=== PATIENT | female | born 1955 | race Caucasian/White ===

== ENCOUNTER 2019-09-25 07:25 | Outpatient (CLI) | payer OTHER, SELFPAY ==
[2019-09-25 08:47] LABS: Free T3 3.18 pg/mL (2.18-3.98); Free T4 Free Thyroxine 2.06 ng/dL (0.76-1.46); Thyroid Stimulating Hormone 0.01 uIU/mL (0.36-3.74)
[2019-09-28 01:30] LABS: Thyroglobulin 0.1 ng/mL (2.8-40.9); Thyroglobulin Antibodies <1 IU/mL (<=1)
== END 2019-09-25 07:26 | disposition home or self-care (01) ==
PROVIDERS: PCP Nurse Practitioner Family
DX: C73 Malignant neoplasm of thyroid gland (principal)
CPT/HCPCS: 36415; 82310; 84432; 84439; 84443; 84481; 86800

== ENCOUNTER 2019-10-18 07:02 | Outpatient (CLI) | payer OTHER, SELFPAY ==
--- NOTE | ~2019-10-18 | US_ITS ---
US thyroid 10/18/2019 11:00 Indication: History of malignant neoplasm of the thyroid Procedure: High-resolution ultrasound of the thyroid bed Comparison: No prior studies for comparison. Findings: The gland is surgically absent. No abnormal masses or fluid collections are identified in t he thyroid bed. No lymphadenopathy identified. Visualized vascular structures are unremarkable. Impression: 1: Unremarkable ultrasound of the thyroid bed. No evidence for residual/recurrent malignancy. Reviewed, dictated and finalized at location A. Impression: 1: Unremarkable ultrasound of the thyroid bed. No evidence for residual/recurre nt malignancy.
[2019-10-18 08:46] LABS: Alanine Aminotransferase 20 U/L (14-59); Alkaline Phosphatase 88 U/L (46-116); Anion Gap 12.8 mmol/L (7-16); Aspartate Amino Transferase 15 U/L (15-37); Bilirubin,Total 0.4 mg/dL (0.00-1.00); Blood Urea Nitrogen 12 mg/dL (7-18); Calcium 9.3 mg/dL (8.5-10.1); Carbon Dioxide 30 mmol/L (21-32); Chloride 107 mmol/L (98-108); Cholesterol 194 mg/dL (0-200); Estimated Glomerular Filt Rate > 60; Free T3 3.68 pg/mL (2.18-3.98); Free T4 Free Thyroxine 1.93 ng/dL (0.76-1.46); Glucose 92 mg/dL (70-99); HDL Direct 77 mg/dL (40-60); LDL Cholesterol Calculated 105 mg/dL (<130); Osmolality Calculated 301 mOsm/kg (285-295); Potassium 3.8 mmol/L (3.5-5.1); Sodium 146 mmol/L (136-145); Triglycerides 60 mg/dL (0-150)
[2019-10-18 09:08] LABS: Thyroid Stimulating Hormone 0.01 uIU/mL (0.36-3.74)
[2019-10-21 04:50] LABS: Thyroglobulin 0.1 ng/mL (2.8-40.9); Thyroglobulin Antibodies <1 IU/mL (<=1)
== END 2019-10-18 07:03 | disposition home or self-care (01) ==
PROVIDERS: PCP Nurse Practitioner Family; Visit Provider Internal Medicine Endocrinology, Diabetes & Metabolism
DX: E89.0 Postprocedural hypothyroidism (principal); Z85.850 Personal history of malignant neoplasm of thyroid; Z13.220 Encounter for screening for lipoid disorders
CPT/HCPCS: 36415; 76536; 80053; 80061; 84432; 84439; 84443; 84481; 86800

== ENCOUNTER 2020-01-15 11:33 | Outpatient (CLI) | payer OTHER, SELFPAY ==
[2020-01-15 19:46] LABS: SARS-CoV-2 RNA PCR Negative
== END 2020-01-15 11:34 | disposition home or self-care (01) ==
PROVIDERS: PCP Nurse Practitioner Family; Visit Provider Nurse Practitioner Family
DX: Z20.828 Contact with and (suspected) exposure to other viral communicable diseases (principal)
CPT/HCPCS: 87635; C9803; U0003

== ENCOUNTER 2020-01-16 13:07 | Outpatient (CLI) | payer OTHER, SELFPAY ==
[2020-01-17 18:52] LABS: SARS-CoV-2 RNA PCR Negative
== END 2020-01-16 13:08 | disposition home or self-care (01) ==
LOC: CHSLAB 13:10
PROVIDERS: PCP Nurse Practitioner Family; Visit Provider Nurse Practitioner Family
DX: Z20.828 Contact with and (suspected) exposure to other viral communicable diseases (principal)
CPT/HCPCS: 87635; C9803; U0003

== ENCOUNTER 2020-02-06 07:01 | Outpatient (CLI) | payer OTHER, SELFPAY ==
[2020-02-06 08:23] LABS: Free T3 3.63 pg/mL (2.18-3.98); Free T4 Free Thyroxine 1.94 ng/dL (0.76-1.46)
[2020-02-06 08:24] LABS: Thyroid Stimulating Hormone < 0.01 uIU/mL (0.36-3.74)
[2020-02-09 03:48] LABS: Thyroglobulin 0.2 ng/mL (2.8-40.9); Thyroglobulin Antibodies <1 IU/mL (<=1)
== END 2020-02-06 07:02 | disposition home or self-care (01) ==
PROVIDERS: PCP Nurse Practitioner Family
DX: C73 Malignant neoplasm of thyroid gland (principal)
CPT/HCPCS: 36415; 84432; 84439; 84443; 84481; 86800

== ENCOUNTER 2020-04-25 12:55 | Outpatient (CLI) | payer OTHER, SELFPAY ==
--- NOTE | ~2020-04-25 | MM_ITS ---
EXAMINATION: MM screening [facility] BI w liam HISTORY: Screening mammogram TECHNIQUE: Craniocaudal and mediolateral oblique 3-D tomosynthesis images were obtained and synthetic 2-D images were generated. CAD analysis was submitted and interpreted. COMPARISON: 04/25/2019, 04/29/2019, 04/02/1918, 03/24/2016 BREAST PARENCHYMAL COMPOSITION: There are scattered areas of fibroglandular density. FINDINGS: There is no evidence of suspicious mass, calcification, or architectural distortion to sugg est malignancy in either breast. There has been no suspicious interval change. IMPRESSION: 1. No mammographic evidence of malignancy. 2. Recommend routine screening mammography in one year. BI-RADS Category 1: Negative Reviewed, dictated and finalized at location A. DEVELOPER
--- NOTE | ~2020-04-25 | DEXA_ITS ---
Bone Density Report Name: Piedad Clinton Age: 64 Sex: Female Ethnicity: White Date of : 1955 Indication: postmenopausal; screening for osteoporosis; parental hip fracture; height loss; cancer; hysterectomy; Referring Provider: Kirby, Kari Pena Study: Bone densitometry was performed. Exam Date: April 25, 2020 Accession number: [id number] Bone Density: Region BMD T-score Z-score Classification AP Spine(L1-L4) 0.827 -2.0 -0.3 Osteopenia Femoral Neck (Left) 0.618 -2.1 -0.6 Osteopenia Total Hip (Left) 0.761 -1.5 -0.3 Osteopenia Femoral Neck (Right) 0.657 -1.7 -0.3 Osteopenia Total Hip (Right) 0.776 -1.4 -0.2 Osteopenia Femoral Neck Mean 0.638 -1.9 -0.5 Osteopenia Total Hip Mean 0.769 -1.4 -0.3 Osteopenia World Health Organization criteria for BMD impression classify patients as: Normal (T-score at or above -1.0), Osteopenia (T-score between -1.0 and -2.5), or Osteoporosis (T-score at or below -2.5). 10-year Fracture Risk(1): Major Osteoporotic Fracture 19% Hip Fracture 1.6% Reported Risk Factors: [place] (), Neck BMD=0.618, BMI=23.4, parental fracture (1) FRAX(R) Version 3.08. Fracture probability calculated for an untreated patient. Fracture probability may be lower if the patient has received treatment. Clinical Information Provided by Patient: Parent has had a hip fracture Has used the following medications: Calcium Has the following medical conditions: Cancer, Hysterectomy Patient maximum height was 68 Menopause Age: 49 No regular weight bearing exercise Drinks caffeinated beverages Onset of menses at age 17 Number of children 2 Impression: The patient has low bone mass, based on the Left Femoral Neck T-score. The patient has risk factors, including: parental hip fracture. Discussion: BONE DENSITY IS LOW AT ONE OR MORE SKELETAL SITES. This patient's lowest T-score is low at one or more skeletal sites. It meets the World Health Organization's (WHO) criteria for ?low bone mass? (T-score between -1.0 and -2.5). The patient's 10-year risk of fracture as calculated by FRAX is less than the threshold where pharmacological therapy is recommended by the National Osteoporosis Foundation (NOF). However, all treatment decisions require clinical judgment and consideration of individual patient factors, including patient preferences, comorbidities, previous drug use, risk factors not captured in the FRAX model (e.g., frailty, falls, vitamin D deficiency, increased bone turnover, interval significant decline in bone density) and possible under or overestimation of fracture risk by FRAX. The patient should follow a healthful lifestyle (good nutrition with adequate calcium and vitamin D, and appropriate weight-bearing exercise). Follow-Up: Consider repeating t
== END 2020-04-25 12:56 | disposition home or self-care (01) ==
LOC: CHSIMG 12:56
PROVIDERS: PCP Nurse Practitioner Family; Visit Provider Internal Medicine Endocrinology, Diabetes & Metabolism
DX: N95.9 Unspecified menopausal and perimenopausal disorder (principal); Z12.31 Encounter for screening mammogram for malignant neoplasm of breast
CPT/HCPCS: 77063; 77067; 77080

== ENCOUNTER 2020-04-30 07:07 | Outpatient (CLI) | payer OTHER, SELFPAY ==
[2020-04-30 09:18] LABS: Alanine Aminotransferase 23 U/L (14-59); Alkaline Phosphatase 99 U/L (46-116); Anion Gap 5 mmol/L (8-16); Aspartate Amino Transferase 10 U/L (15-37); Bilirubin,Total 0.5 mg/dL (0.00-1.00); Blood Urea Nitrogen 15 mg/dL (7-18); Calcium 9.2 mg/dL (8.5-10.1); Carbon Dioxide 30 mmol/L (21-32); Chloride 106 mmol/L (98-108); Estimated Glomerular Filt Rate > 60; Free T3 3.05 pg/mL (2.18-3.98); Free T4 Free Thyroxine 1.68 ng/dL (0.76-1.46); Glucose 83 mg/dL (70-99); Osmolality Calculated 291 mOsm/kg (285-295); Sodium 141 mmol/L (136-145); Total Protein 7.2 g/dL (6.4-8.2)
[2020-04-30 09:30] LABS: Thyroid Stimulating Hormone < 0.01 uIU/mL (0.36-3.74)
[2020-05-03 06:13] LABS: Thyroglobulin 0.2 ng/mL (2.8-40.9); Thyroglobulin Antibodies <1 IU/mL (<=1)
== END 2020-04-30 07:08 | disposition home or self-care (01) ==
LOC: CHSLAB 07:09
PROVIDERS: PCP Nurse Practitioner Family; Visit Provider Internal Medicine Endocrinology, Diabetes & Metabolism
DX: E89.0 Postprocedural hypothyroidism (principal)
CPT/HCPCS: 36415; 80053; 84432; 84439; 84443; 84481; 86800

== ENCOUNTER 2020-07-05 07:09 | Outpatient (CLI) | payer OTHER, SELFPAY ==
[2020-07-05 08:46] LABS: Alanine Aminotransferase 18 U/L (14-59); Alkaline Phosphatase 94 U/L (46-116); Anion Gap 7 mmol/L (8-16); Aspartate Amino Transferase < 10 U/L (15-37); Bilirubin,Total 0.4 mg/dL (0.00-1.00); Blood Urea Nitrogen 14 mg/dL (7-18); Calcium 9.1 mg/dL (8.5-10.1); Carbon Dioxide 29 mmol/L (21-32); Chloride 104 mmol/L (98-108); Estimated Glomerular Filt Rate > 60; Free T3 2.54 pg/mL (2.18-3.98); Glucose 84 mg/dL (70-99); Osmolality Calculated 289 mOsm/kg (285-295); Potassium 4.1 mmol/L (3.5-5.1); Sodium 140 mmol/L (136-145); Total Protein 7.1 g/dL (6.4-8.2)
[2020-07-05 09:16] LABS: Thyroid Stimulating Hormone < 0.01 uIU/mL (0.36-3.74)
== END 2020-07-05 07:10 | disposition home or self-care (01) ==
LOC: CHSLAB 07:10
PROVIDERS: PCP Nurse Practitioner Family; Visit Provider Internal Medicine Endocrinology, Diabetes & Metabolism
DX: E89.0 Postprocedural hypothyroidism (principal)
CPT/HCPCS: 36415; 80053; 84439; 84443; 84481

== ENCOUNTER 2020-10-08 07:04 | Outpatient (CLI) | payer OTHER, SELFPAY ==
[2020-10-08 08:26] LABS: Alanine Aminotransferase 24 U/L (14-59); Albumin Level 3.8 g/dL (3.4-5.0); Alkaline Phosphatase 102 U/L (46-116); Anion Gap 6 mmol/L (8-16); Aspartate Amino Transferase 13 U/L (15-37); Bilirubin,Total 0.5 mg/dL (0.00-1.00); Blood Urea Nitrogen 17 mg/dL (7-18); Calcium 9.4 mg/dL (8.5-10.1); Carbon Dioxide 31 mmol/L (21-32); Chloride 104 mmol/L (98-108); Estimated Glomerular Filt Rate > 60; Free T4 Free Thyroxine 1.42 ng/dL (0.76-1.46); Glucose 77 mg/dL (70-99); Osmolality Calculated 292 mOsm/kg (285-295); Sodium 141 mmol/L (136-145); Thyroid Stimulating Hormone 0.02 uIU/mL (0.36-3.74); Total Protein 6.8 g/dL (6.4-8.2)
[2020-10-08 09:14] LABS: Free T3 2.56 pg/mL (2.18-3.98)
[2020-10-10 11:55] LABS: Calcitonin 3 pg/mL (<=5)
[2020-10-11 06:24] LABS: Thyroglobulin <0.1 ng/mL (2.8-40.9); Thyroglobulin Antibodies 9 IU/mL (<=1)
[2020-10-14 20:56] LABS: Vitamin D 25 Hydroxy 23 ng/mL (30-100)
== END 2020-10-08 07:05 | disposition home or self-care (01) ==
LOC: CHSLAB 07:06
PROVIDERS: PCP Nurse Practitioner Family; Visit Provider Internal Medicine Endocrinology, Diabetes & Metabolism
DX: E89.0 Postprocedural hypothyroidism (principal); Z85.850 Personal history of malignant neoplasm of thyroid; M85.80 Other specified disorders of bone density and structure, unspecified site
CPT/HCPCS: 36415; 80053; 82306; 82308; 84432; 84439; 84443; 84481; 86800

== ENCOUNTER 2021-02-12 07:58 | Outpatient (CLI) | payer OTHER, SELFPAY ==
[2021-02-12 09:19] LABS: Alanine Aminotransferase 23 U/L (14-59); Albumin Level 4.1 g/dL (3.4-5.0); Alkaline Phosphatase 90 U/L (46-116); Anion Gap 8 mmol/L (8-16); Aspartate Amino Transferase 13 U/L (15-37); Bilirubin,Total 0.5 mg/dL (0.00-1.00); Blood Urea Nitrogen 15 mg/dL (7-18); Calcium 9.3 mg/dL (8.5-10.1); Carbon Dioxide 29 mmol/L (21-32); Chloride 106 mmol/L (98-108); Cholesterol 189 mg/dL (0-200); Estimated Glomerular Filt Rate > 60; Free T3 2.92 pg/mL (2.18-3.98); Free T4 Free Thyroxine 1.66 ng/dL (0.76-1.46); Glucose 82 mg/dL (70-99); HDL Direct 74 mg/dL (40-60); LDL Cholesterol Calculated 98 mg/dL (<130); Osmolality Calculated 295 mOsm/kg (285-295); Potassium 4.1 mmol/L (3.5-5.1); Sodium 143 mmol/L (136-145); Total Protein 7.2 g/dL (6.4-8.2); Triglycerides 83 mg/dL (0-150)
[2021-02-12 09:22] LABS: Thyroid Stimulating Hormone < 0.01 uIU/mL (0.36-3.74)
== END 2021-02-12 07:59 | disposition home or self-care (01) ==
LOC: CHSLAB 08:00
PROVIDERS: PCP Nurse Practitioner Family; Visit Provider Internal Medicine Endocrinology, Diabetes & Metabolism
DX: E89.0 Postprocedural hypothyroidism (principal)
CPT/HCPCS: 36415; 80053; 80061; 84439; 84443; 84481

== ENCOUNTER 2021-03-17 13:28 | Outpatient (CLI) | payer OTHER, SELFPAY ==
--- NOTE | ~2021-03-17 | US_ITS ---
EXAMINATION: US thyroid EXAM DATE: 03/17/2021 13:53 INDICATION: Hypothyroidism . TECHNIQUE: Multiple grayscale and Doppler images of the thyroid were obtained (by a technologist who performed the scan) and subsequently reviewed. Individual nodules and recommendations may be reporte d in accordance with TI-RADS system as designated by the 2017 ACR White Paper TI-RADS committee. Comp arison is made to prior examination from 10/18/2019. FINDINGS: There is unremarkable thyroidectomy bed bilaterally, no evidence of regional lymphadenopathy or resid ual thyroid soft tissue identified. No interval change. IMPRESSION: Unremarkable thyroidectomy bed. Reviewed, dictated and finalized at location A.
== END 2021-03-17 13:29 | disposition home or self-care (01) ==
PROVIDERS: PCP Nurse Practitioner Family; Visit Provider Internal Medicine Endocrinology, Diabetes & Metabolism
DX: E89.0 Postprocedural hypothyroidism (principal)
CPT/HCPCS: 76536

== ENCOUNTER 2021-06-03 07:49 | Outpatient (CLI) | payer OTHER, SELFPAY ==
--- NOTE | ~2021-06-03 | MM_ITS ---
EXAMINATION: MM screening [facility] BI w liam HISTORY: Screening mammogram TECHNIQUE: Craniocaudal and mediolateral oblique 3-D tomosynthesis images were obtained and synthetic 2-D images were generated. CAD analysis was submitted and interpreted. COMPARISON: 04/25/2020, 04/25/2019, 04/19/2019, 04/11/2018 BREAST PARENCHYMAL COMPOSITION: The breasts are heterogeneously dense, which may obscure small masses . FINDINGS: RIGHT BREAST: There is no evidence of suspicious mass, calcification, or architectural distortion to suggest malignancy. There has been no significant interval change. LEFT BREAST: Asymmetries are present in the posterior third of the slightly outer breast 6 cm from th e nipple and the middle third of the slightly inner breast 5 cm from the nipple on the craniocaudal v iew. IMPRESSION: 1. Left breast asymmetries. 2. Additional mammographic views and possible breast ultrasound are recommended. BI-RADS Category 0: Incomplete: Needs additional imaging evaluation. Reviewed, dictated and finalized at location A. ING UTILITY WORKER IMPRESSION: 1. Left breast asymmetries. 2. Additional mammographic views and possible breast ultrasound are recommended . BI-RADS Category 0: Incomplete: Needs additional imaging evaluation.
== END 2021-06-03 07:50 | disposition home or self-care (01) ==
LOC: CHSIMG 07:50
PROVIDERS: PCP Nurse Practitioner Family; Visit Provider Nurse Practitioner Family
DX: Z12.31 Encounter for screening mammogram for malignant neoplasm of breast (principal)
CPT/HCPCS: 77063; 77067

== ENCOUNTER 2021-06-05 07:42 | Outpatient (CLI) | payer OTHER, SELFPAY ==
--- NOTE | ~2021-06-05 | MMUS_ITS ---
EXAMINATION: MM diagnostic [facility] LT w liam, US breast LT limited HISTORY: Left breast asymmetries on screening mammogram TECHNIQUE: Additional 3-D tomosynthesis images of the left breast were performed and synthetic 2-D im ages were generated. CAD analysis was submitted and interpreted. High resolution limited left breast ultrasound was performed. COMPARISON: 06/03/2021, 04/25/2020, 04/25/2019, 04/19/2019 FINDINGS: MAMMOGRAPHIC FINDINGS: Subtle asymmetry persists in the outer breast 6 cm from nipple at the 3:00 location on the craniocaud al view and in the middle third of the slightly inner breast at the 9:00 location 5.5 cm from the nip ple on the craniocaudal view. No suspicious calcification or architectural distortion are identified. ULTRASOUND: There is no evidence of focal abnormal solid or cystic mass in the vicinity of the mammographic findi ngs in question. IMPRESSION: 1. Probably benign left breast asymmetries. 2. Recommend 6 month follow-up diagnostic mammogram and possible ultrasound. BI-RADS category 3, probably benign findings. Reviewed, dictated and finalized at location A. FACTORY WORKER IMPRESSION: 1. Probably benign left breast asymmetries. 2. Recommend 6 month follow-up diagnostic mammogram and possible ultrasound. BI-RADS category 3, probably benign findings.
== END 2021-06-05 07:43 | disposition home or self-care (01) ==
LOC: CHSIMG 07:43
PROVIDERS: PCP Nurse Practitioner Family; Visit Provider Nurse Practitioner Family
DX: R92.8 Other abnormal and inconclusive findings on diagnostic imaging of breast (principal)
CPT/HCPCS: 76642; 77061; 77065; G0279

== ENCOUNTER 2021-06-12 07:33 | Outpatient (CLI) | payer OTHER, SELFPAY ==
[2021-06-12 07:53] LABS: Hemoglobin A1C 5.6 % (<5.7)
[2021-06-12 08:30] LABS: Alanine Aminotransferase 21 U/L (14-59); Albumin Level 4.1 g/dL (3.4-5.0); Alkaline Phosphatase 90 U/L (46-116); Anion Gap 9 mmol/L (8-16); Aspartate Amino Transferase 10 U/L (15-37); Bilirubin,Total 0.4 mg/dL (0.00-1.00); Blood Urea Nitrogen 17 mg/dL (7-18); Calcium 9.2 mg/dL (8.5-10.1); Carbon Dioxide 29 mmol/L (21-32); Chloride 106 mmol/L (98-108); Cholesterol 206 mg/dL (0-200); Estimated Glomerular Filt Rate 60; Free T4 Free Thyroxine 1.48 ng/dL (0.76-1.46); Glucose 91 mg/dL (70-99); HDL Direct 83 mg/dL (40-60); LDL Cholesterol Calculated 111 mg/dL (<130); Osmolality Calculated 299 mOsm/kg (285-295); Potassium 4.1 mmol/L (3.5-5.1); Sodium 144 mmol/L (136-145); Thyroid Stimulating Hormone 0.02 uIU/mL (0.36-3.74); Total Protein 7.1 g/dL (6.4-8.2); Triglycerides 62 mg/dL (0-150)
[2021-06-15 00:59] LABS: Insulin Level Total 3.6 uIU/mL (<=19.6); Thyroglobulin <0.1 ng/mL (2.8-40.9); Thyroglobulin Antibodies 86 IU/mL (<=1)
== END 2021-06-12 07:34 | disposition home or self-care (01) ==
LOC: CHSLAB 07:35
PROVIDERS: PCP Nurse Practitioner Family; Visit Provider Internal Medicine Endocrinology, Diabetes & Metabolism
DX: E89.0 Postprocedural hypothyroidism (principal); R73.01 Impaired fasting glucose
CPT/HCPCS: 36415; 80053; 80061; 83036; 83525; 84432; 84439; 84443; 86800

== ENCOUNTER 2021-12-10 07:33 | Outpatient (CLI) | payer OTHER, SELFPAY ==
[2021-12-10 08:19] LABS: Hemoglobin A1C 5.6 % (<5.7)
[2021-12-10 09:48] LABS: Alanine Aminotransferase 26 U/L (14-59); Albumin Level 4.1 g/dL (3.4-5.0); Alkaline Phosphatase 103 U/L (46-116); Anion Gap 9 mmol/L (8-16); Aspartate Amino Transferase 16 U/L (15-37); Bilirubin,Total 0.7 mg/dL (0.00-1.00); Blood Urea Nitrogen 13 mg/dL (7-18); Calcium 9.2 mg/dL (8.5-10.1); Carbon Dioxide 29 mmol/L (21-32); Chloride 105 mmol/L (98-108); Cholesterol 218 mg/dL (0-200); Estimated Glomerular Filt Rate > 60; Free T4 Free Thyroxine 1.64 ng/dL (0.76-1.46); Glucose 82 mg/dL (70-99); HDL Direct 76 mg/dL (40-60); LDL Cholesterol Calculated 117 mg/dL (<130); Osmolality Calculated 295 mOsm/kg (285-295); Potassium 3.7 mmol/L (3.5-5.1); Sodium 143 mmol/L (136-145); Thyroid Stimulating Hormone 0.02 uIU/mL (0.36-3.74); Total Protein 7.2 g/dL (6.4-8.2); Triglycerides 124 mg/dL (0-150)
[2021-12-14 14:16] LABS: Insulin Level Total 4.9 uIU/mL (<=19.6); Thyroglobulin <0.1 ng/mL (2.8-40.9); Thyroglobulin Antibodies 25 IU/mL (<=1)
== END 2021-12-10 07:34 | disposition home or self-care (01) ==
LOC: CHSLAB 07:35
PROVIDERS: PCP Nurse Practitioner Family; Visit Provider Internal Medicine Endocrinology, Diabetes & Metabolism
DX: E89.0 Postprocedural hypothyroidism (principal); R73.01 Impaired fasting glucose; E78.5 Hyperlipidemia, unspecified
CPT/HCPCS: 36415; 80053; 80061; 83036; 83525; 84432; 84439; 84443; 86800

== ENCOUNTER 2022-04-27 08:24 | Outpatient (CLI) | payer OTHER, SELFPAY ==
--- NOTE | ~2022-04-27 | DEXA_ITS ---
Bone Density Report Name: OPAL DODSON Age: 66 Sex: Female Ethnicity: White Date of : 1955 Indication: postmenopausal; screening for osteoporosis; parental hip fracture; height loss; cancer; hysterectomy; Referring Provider: Kirby, Kari Pena Study: Bone densitometry was performed. Exam Date: April 27, 2022 Accession number: [id number] Bone Density: Region BMD T-score Z-score Classification AP Spine(L1-L4) 0.814 -2.1 -0.3 Osteopenia Femoral Neck (Left) 0.600 -2.2 -0.7 Osteopenia Total Hip (Left) 0.739 -1.7 -0.4 Osteopenia Femoral Neck (Right) 0.636 -1.9 -0.4 Osteopenia Total Hip (Right) 0.767 -1.4 -0.2 Osteopenia Femoral Neck Mean 0.618 -2.1 -0.5 Osteopenia Total Hip Mean 0.753 -1.6 -0.3 Osteopenia World Health Organization criteria for BMD impression classify patients as: Normal (T-score at or above -1.0), Osteopenia (T-score between -1.0 and -2.5), or Osteoporosis (T-score at or below -2.5). 10-year Fracture Risk(1): Major Osteoporotic Fracture 21% Hip Fracture 2.5% Reported Risk Factors: [place] (), Neck BMD=0.600, BMI=23.8, parental fracture (1) FRAX(R) Version 3.08. Fracture probability calculated for an untreated patient. Fracture probability may be lower if the patient has received treatment. Clinical Information Provided by Patient: Parent has had a hip fracture Has used the following medications: Vitamin D, Calcium Has the following medical conditions: Cancer, Hysterectomy Patient maximum height was 68 Menopause Age: 49 No regular weight bearing exercise Drinks caffeinated beverages Onset of menses at age 17 Number of children 2 Impression: The patient has low bone mass, based on the Left Femoral Neck T-score. The patient has risk factors, including: parental hip fracture. Discussion: BONE DENSITY IS LOW AT ONE OR MORE SKELETAL SITES. This patient's lowest T-score is low at one or more skeletal sites. It meets the World Health Organization's (WHO) criteria for ?low bone mass? (T-score between -1.0 and -2.5). The patient's 10-year risk of fracture as calculated by FRAX is less than the threshold where pharmacological therapy is recommended by the National Osteoporosis Foundation (NOF). However, all treatment decisions require clinical judgment and consideration of individual patient factors, including patient preferences, comorbidities, previous drug use, risk factors not captured in the FRAX model (e.g., frailty, falls, vitamin D deficiency, increased bone turnover, interval significant decline in bone density) and possible under or overestimation of fracture risk by FRAX. The patient should follow a healthful lifestyle (good nutrition with adequate calcium and vitamin D, and appropriate weight-bearing exercise). Follow-Up: Consider
[2022-04-27 08:48] LABS: Hemoglobin A1C 5.3 % (<5.7)
[2022-04-27 10:10] LABS: Alanine Aminotransferase 22 U/L (14-59); Albumin Level 4.1 g/dL (3.4-5.0); Alkaline Phosphatase 99 U/L (46-116); Anion Gap 11 mmol/L (8-16); Aspartate Amino Transferase 10 U/L (15-37); Bilirubin,Total 0.6 mg/dL (0.00-1.00); Blood Urea Nitrogen 13 mg/dL (7-18); Calcium 9.2 mg/dL (8.5-10.1); Carbon Dioxide 27 mmol/L (21-32); Chloride 106 mmol/L (98-108); Estimated Glomerular Filt Rate > 60; Free T4 Free Thyroxine 1.56 ng/dL (0.76-1.46); Glucose 91 mg/dL (70-99); Osmolality Calculated 298 mOsm/kg (285-295); Potassium 4.1 mmol/L (3.5-5.1); Sodium 144 mmol/L (136-145); Thyroid Stimulating Hormone 0.03 uIU/mL (0.36-3.74); Total Protein 7.3 g/dL (6.4-8.2)
[2022-04-30 05:22] LABS: Thyroglobulin 0.1 ng/mL (2.8-40.9); Thyroglobulin Antibodies 15 IU/mL (<=1)
[2022-04-30 11:40] LABS: Insulin Level Total 5.2 uIU/mL (<=19.6)
== END 2022-04-27 08:25 | disposition home or self-care (01) ==
LOC: CHSLAB 08:26
PROVIDERS: PCP Nurse Practitioner Family; Visit Provider Internal Medicine Endocrinology, Diabetes & Metabolism
DX: Z78.0 Asymptomatic menopausal state (principal); E89.0 Postprocedural hypothyroidism; R73.01 Impaired fasting glucose
CPT/HCPCS: 36415; 77080; 80053; 83036; 83525; 84432; 84439; 84443; 86800

== ENCOUNTER 2022-06-25 15:13 | Outpatient (CLI) | payer OTHER, SELFPAY | END 2022-06-25 15:14 | disposition home or self-care (01) | LOC: CHSLAB 15:15 | PROVIDERS: PCP Nurse Practitioner Family; Visit Provider Nurse Practitioner Family | DX: R19.7 Diarrhea, unspecified (principal) | CPT/HCPCS: 87324 ==

== ENCOUNTER 2022-08-19 13:54 | Outpatient (CLI) | payer OTHER, SELFPAY ==
[2022-08-19 14:06] LABS: Appearance Urine Clear (Clear); Bilirubin Urine Negative (Negative); Blood Urine Negative (Negative); Color Urine Light Yellow (Yellow); Glucose Urine UA Negative (Negative); Ketones Urine Negative (Negative); Leukocyte Esterase Ur 3+ LEU/UL (Negative); Nitrate Urine Negative (Negative); Protein Urine Negative (Negative); Urobilinogen Urine 0.2 mg/dL (0.2-1.0)
[2022-08-19 14:30] LABS: Add Urine Microscopic? YES; Bacteria Urine 1+ /hpf; RBC Urine None seen /hpf (0-2); Squamous Epithelial Cell Urine Few /hpf (Few); WBC Urine >75 /hpf (0-3)
== END 2022-08-19 13:55 | disposition home or self-care (01) ==
LOC: CHSLAB 13:56
PROVIDERS: PCP Nurse Practitioner Family; Visit Provider Nurse Practitioner Family
DX: R39.9 Unspecified symptoms and signs involving the genitourinary system (principal); R82.90 Unspecified abnormal findings in urine
CPT/HCPCS: 81001; 87086; 87088

== ENCOUNTER 2022-09-03 11:52 | Outpatient (NON) | payer OTHER, SELFPAY ==
[2022-09-03 12:00] LABS: Appearance Urine Clear (Clear); Color Urine Light Yellow (Yellow); Specific Grav Ur 1.015 (1.010-1.020)
[2022-09-03 12:01] LABS: Bilirubin Urine Negative (Negative); Blood Urine Negative (Negative); Glucose Urine UA Negative (Negative); Ketones Urine Negative (Negative); Leukocyte Esterase Ur 1+ LEU/UL (Negative); Nitrate Urine Negative (Negative); Protein Urine Negative (Negative); Urobilinogen Urine 0.2 mg/dL (0.2-1.0)
[2022-09-03 12:25] LABS: Add Urine Microscopic? YES; RBC Urine None seen /hpf (0-2); Squamous Epithelial Cell Urine Few /hpf (Few); WBC Urine 0-3 /hpf (0-3)
[2022-09-03 12:26] LABS: Bacteria Urine Rare /hpf
== END 2022-09-03 11:53 | disposition home or self-care (01) ==
LOC: CHSLAB 11:54
PROVIDERS: Visit Provider Nurse Practitioner Family
DX: R82.90 Unspecified abnormal findings in urine (principal); Z87.898 Personal history of other specified conditions
CPT/HCPCS: 81001; 87077; 87086; 87088; 87186

== ENCOUNTER 2022-11-17 14:06 | Outpatient (CLI) | payer OTHER, SELFPAY ==
[2022-11-17 14:41] LABS: Hemoglobin A1C 5.5 % (<5.7)
[2022-11-17 15:36] LABS: Free T4 Free Thyroxine 1.07 ng/dL (0.76-1.46); Phosphorus 3.4 mg/dL (2.6-4.7); Thyroid Stimulating Hormone 9.11 uIU/mL (0.36-3.74)
[2022-11-18 13:41] LABS: Alanine Aminotransferase 20 U/L (14-59); Albumin Level 3.4 g/dL (3.4-5.0); Alkaline Phosphatase 123 U/L (46-116); Anion Gap 10 mmol/L (8-16); Aspartate Amino Transferase 18 U/L (15-37); Bilirubin,Total 0.2 mg/dL (0.00-1.00); Blood Urea Nitrogen 17 mg/dL (7-18); Calcium 9.2 mg/dL (8.5-10.1); Carbon Dioxide 30 mmol/L (21-32); Chloride 104 mmol/L (98-108); Estimated Glomerular Filt Rate > 60; Glucose 91 mg/dL (70-99); Osmolality Calculated 299 mOsm/kg (285-295); Potassium 3.8 mmol/L (3.5-5.1); Sodium 144 mmol/L (136-145); Total Protein 6.9 g/dL (6.4-8.2)
[2022-11-20 04:29] LABS: Insulin Level Total 2.4 uIU/mL (<=19.6); Thyroglobulin 0.1 ng/mL (2.8-40.9); Thyroglobulin Antibodies 3 IU/mL (<=1)
[2022-11-20 22:13] LABS: Parathyroid Intact 17 pg/mL (14-64)
[2022-11-22 20:52] LABS: Vitamin D 25 Hydroxy 17 ng/mL (30-100)
== END 2022-11-17 14:07 | disposition home or self-care (01) ==
LOC: CHSLAB 14:09
PROVIDERS: PCP Nurse Practitioner Family; Visit Provider Nurse Practitioner
DX: E89.0 Postprocedural hypothyroidism (principal); M85.80 Other specified disorders of bone density and structure, unspecified site; R73.01 Impaired fasting glucose
CPT/HCPCS: 36415; 80053; 82306; 83036; 83525; 83970; 84100; 84432; 84439; 84443; 86800

== ENCOUNTER 2023-01-04 07:18 | Outpatient (CLI) | payer OTHER, SELFPAY ==
[2023-01-04 08:21] LABS: Free T4 Free Thyroxine 1.23 ng/dL (0.76-1.46); Thyroid Stimulating Hormone 4.48 uIU/mL (0.36-3.74)
[2023-01-07 18:47] LABS: Vitamin D 25 Hydroxy 39 ng/mL (30-100)
== END 2023-01-04 07:19 | disposition home or self-care (01) ==
LOC: CHSLAB 07:23
PROVIDERS: PCP Nurse Practitioner Family; Visit Provider Internal Medicine Endocrinology, Diabetes & Metabolism
DX: C73 Malignant neoplasm of thyroid gland (principal); M85.80 Other specified disorders of bone density and structure, unspecified site
CPT/HCPCS: 36415; 82306; 84439; 84443

== ENCOUNTER 2023-01-07 13:00 | Emergency (ER) | payer OTHER, SELFPAY ==
--- NOTE | 2023-01-07 13:09 | ED.GENADULT ---
HPI - General Adult General Chief complaint: Nausea/Vomiting/Diarrhea Stated complaint: vomiting Time Seen by Provider: 01/07/23 13:09 Source: patient and family Mode of arrival: ambulatory Limitations: no limitations History of Present Illness HPI narrative: patient is a 67-year-old female who was having lunch out in her car and sustained some overheating symptoms. She feels nausea and almost vomiting while she was out in the heat and eventually felt like she could pass out but did not pass out. No chest pain or shortness of breath. Patient has baseline thyroid cancer which has been treated with thyroid removal and is currently on medication for thyroid replacement. Onset (ago): minute(s) (30) Location: chest, back, abdomen, left, right, upper extremity and lower extremity Radiation: non-radiation Severity: moderate Quality: constant Relieving factors: cold therapy Exacerbating factors: none Associated symptoms: malaise and nausea/vomiting Treatments prior to arrival: none Related Data Home Medications Medication Instructions Recorded Confirmed dabrafenib 75 mg capsule (Tafinlar) 75 mg PO QID 01/07/23 01/07/23 trametinib 2 mg tablet (Mekinist) 2 mg PO DAILY 01/07/23 01/07/23 Allergies Allergy/AdvReac Type Severity Reaction Status Date / Time sulfamethoxazole [Bactrim] Allergy Intermediate Unknown Verified 01/07/23 13:13 trimethoprim Allergy Unknown Rash Verified 01/07/23 13:13 Review of Systems Review of Systems: All systems reviewed & are unremarkable except as noted in HPI and below Constitutional: Constitutional: Reports no additional constitutional complaints Eyes: Eyes: Reports no additional eye complaints ENT: Reports system reviewed and no additional complaints, except as documented Cardiovascular: Cardiovascular: Reports no additional cardiovascular complaints Respiratory: Respiratory: Reports no additional respiratory complaints Gastrointestinal: Gastrointestinal: Reports no additional gastrointestinal complaints, Reports nausea and Reports vomiting Genitourinary: Genitourinary: Reports no additional female genitourinary complaints Musculoskeletal: Musculoskeletal: Reports no additional musculoskeletal complaints Integumentary/Breasts: Skin/Breast: Reports system reviewed and no additional complaints, except as docu Neurologic: Reports system reviewed and no additional complaints, except as documented Psychiatric: Psychiatric: Reports no additional psychiatric complaints Endocrine: Endocrine: Reports no additional endocrine complaints Hematologic/Lymphatic: Hematologic/Lymphatic: Reports no additional hematologic/lymphatic complaints Allergic/Immunologic: Allergic/Immunologic: Reports no additional allergic/immunologic complaints PMFSH Past Medical History Medical History (Updated 01/07/23 @ 13:39 by Mikael Giron MD) H/O malignant neoplasm of thyroid Surgical History Surgical History History of 2 sections History of appendectomy 2004 Hx of hysterectomy with oophorectomy 2004 Family History Family History Mother Family history of type 2 diabetes mellitus Other Family history of dementia Social History Social History Smoking status: Never smoker Tobacco type: cigarettes Alcohol intake: current Drinks per week: 1 Substance use: never Lack of Transportation: No Lack of Food: Never True Current Housing: I Have Housing Concerned About Future Housing: No Difficulty Paying Gas/Electric Bills: No Difficulty Paying for Meds: No Currently Unemployed: No Education: Grade School Difficulty w/ Childcare or Family Care: No Living arrangements: with family Exam Const: General: healthy appearing Nutritional Appearance: well nourished Orientation/consciousness: patient or
[2023-01-07 13:15] VITALS: BP 103/67; BP 108/61; PULSE 59; PULSE 61; RESP 19; RESP 20; TEMP 37.9; O2SAT 92; O2SAT 94
[2023-01-07 13:30] VITALS: BP 103/59; PULSE 57; RESP 14; TEMP 37.8; O2SAT 93
[2023-01-07 13:45] VITALS: BP 107/56; PULSE 60; RESP 18; O2SAT 94
[2023-01-07 13:49] LABS: Basophils Absolute Auto 0.02 K/mm3 (0.00-0.10); Basophils Percent Auto 0.3 % (0.0-1.0); Hematocrit 30.3 % (35.0-42.0); Immature Granulocyte Absolute 0.03 K/mm3 (0.00-0.00); Immature Granulocyte Percent A 0.5 % (0.0-0.0); Lymphocytes Absolute Auto 0.45 K/mm3 (1.10-4.50); Lymphocytes Percent Auto 7.7 % (18.0-42.0); Mean Corpuscular Hemoglobin 28.6 pg (27.0-31.0); Mean Corpuscular Volume 86.6 fL (78.0-102.0); Monocytes Absolute Auto 0.51 K/mm3 (0.10-0.90); Monocytes Percent Auto 8.7 % (2.0-11.0); Neutrophils Absolute Auto 4.8 K/mm3 (1.7-7.2); Neutrophils Percent Auto 82.8 % (50.0-70.0); Platelet Count Result 187 K/mm3 (150-420); Red Cell Distribution Width 16.1 % (11.6-14.4); White Blood Count 5.9 K/mm3 (4.8-10.8)
[2023-01-07 14:00] VITALS: BP 102/59; PULSE 55; RESP 14; O2SAT 96
--- NOTE | 2023-01-07 14:03 | PC.NURSE ---
patient's temperature is remaining at 100'f patient request no fan to be turned on at this time, states she feels hot due to the pillow and plastic of the bed. patient offered ice pack, cold beverages, or cool compress and patient refused. States she is worried she will get too cold.
[2023-01-07 14:06] LABS: Alanine Aminotransferase 19 U/L (14-59); Albumin Level 2.7 g/dL (3.4-5.0); Alkaline Phosphatase 102 U/L (46-116); Anion Gap 6 mmol/L (8-16); Aspartate Amino Transferase 15 U/L (15-37); Bilirubin,Total 0.3 mg/dL (0.00-1.00); Blood Urea Nitrogen 14 mg/dL (7-18); Calcium 8.7 mg/dL (8.5-10.1); Carbon Dioxide 28 mmol/L (21-32); Chloride 101 mmol/L (98-108); Estimated Glomerular Filt Rate > 60; Glucose 130 mg/dL (70-99); Osmolality Calculated 282 mOsm/kg (285-295); Potassium 3.6 mmol/L (3.5-5.1); Sodium 135 mmol/L (136-145); Total Protein 6.4 g/dL (6.4-8.2)
[2023-01-07 14:20] VITALS: BP 101/54; PULSE 56; RESP 14; TEMP 37.3; O2SAT 95
[2023-01-07 14:37] VITALS: BP 101/54; PULSE 56; RESP 14; TEMP 37.3; O2SAT 95
== END 2023-01-07 14:38 | disposition home or self-care (01) ==
PROVIDERS: Emergency Provider Emergency Medicine; PCP Nurse Practitioner Family
DX: T67.1XXA Heat syncope, initial encounter (principal); Z85.850 Personal history of malignant neoplasm of thyroid
CPT/HCPCS: 36415; 80053; 85025; 99283

== ENCOUNTER 2023-06-22 09:33 | Outpatient (CLI) | payer MEDICARE, SELFPAY ==
[2023-06-22 09:57] LABS: Appearance Urine Clear (Clear); Bilirubin Urine Negative (Negative); Blood Urine Negative (Negative); Color Urine Light Yellow (Yellow); Glucose Urine UA Negative (Negative); Ketones Urine Negative (Negative); Leukocyte Esterase Ur 1+ LEU/UL (Negative); Nitrate Urine Negative (Negative); Protein Urine Negative (Negative); Specific Grav Ur 1.015 (1.010-1.020); Urobilinogen Urine 0.2 mg/dL (0.2-1.0)
[2023-06-22 10:09] LABS: Add Urine Microscopic? YES
[2023-06-22 10:10] LABS: Bacteria Urine 1+ /hpf; Mucus Urine Few /lpf; RBC Urine None seen /hpf (0-2); Squamous Epithelial Cell Urine Rare /hpf (Few); WBC Urine 0-5 /hpf (0-3)
[2023-06-22 10:55] LABS: Alanine Aminotransferase 16 U/L (14-59); Albumin Level 3.2 g/dL (3.4-5.0); Alkaline Phosphatase 121 U/L (46-116); Anion Gap 10 mmol/L (8-16); Aspartate Amino Transferase 14 U/L (15-37); Bilirubin,Total 0.3 mg/dL (0.00-1.00); Blood Urea Nitrogen 10 mg/dL (7-18); Calcium 9.6 mg/dL (8.5-10.1); Carbon Dioxide 30 mmol/L (21-32); Chloride 106 mmol/L (98-108); Estimated Glomerular Filt Rate > 60; Free T4 Free Thyroxine 1.67 ng/dL (0.76-1.46); Glucose 95 mg/dL (70-99); Osmolality Calculated 301 mOsm/kg (285-295); Potassium 3.6 mmol/L (3.5-5.1); Sodium 146 mmol/L (136-145); Thyroid Stimulating Hormone 0.01 uIU/mL (0.36-3.74); Total Protein 6.5 g/dL (6.4-8.2)
[2023-06-27 14:05] LABS: Vitamin D 25 Hydroxy 23 ng/mL (30-100)
== END 2023-06-22 09:34 | disposition home or self-care (01) ==
LOC: CHSLAB 09:35
PROVIDERS: PCP Nurse Practitioner Family; Visit Provider Nurse Practitioner Family
DX: E03.9 Hypothyroidism, unspecified (principal); Z87.898 Personal history of other specified conditions; Z85.850 Personal history of malignant neoplasm of thyroid; Z79.899 Other long term (current) drug therapy
CPT/HCPCS: 36415; 80053; 81001; 82306; 84439; 84443; 87086; 87088

== ENCOUNTER 2024-03-09 22:08 | Emergency (ER) | payer MEDICARE, SELFPAY ==
--- NOTE | ~2024-03-09 | CT_ITS ---
EXAMINATION: CT abdomen pelvis w con DATE: 03/09/2024 23:37 INDICATION: LEFT FLANK PAIN TECHNIQUE: Computed tomography (CT) of the abdomen and pelvis was performed with 100 mL Omnipaque-350 intravenous contrast. Automated exposure control and iterative reconstruction technique were employe d. The dose-length product was 269.69 mGy-cm. COMPARISON: None. FINDINGS: Lower thorax: Bibasilar linear scar and atelectasis. Subsegmental consolidation in the left medial lo wer lobe. Liver: Simple left lobe cyst. 9 mm indeterminate right lobe lesion. Multiple additional smaller subce ntimeter hypodensities are also present. Biliary/Gallbladder: Cholelithiasis. No inflammatory changes. No bile duct dilation. Pancreas: No mass or duct dilation. Spleen: Normal. Adrenals:No mass. Kidneys: 3 mm left midpole nonobstructing calcification. No suspicious mass. Mild left hydronephrosis . GI tract: Small hiatal hernia. Mild distal esophageal and gastric wall edema. No small or large bowel dilation. The appendix is not confidently visualized. Mesentery/Peritoneum: No ascites, mass, or free air. Retroperitoneum: No mass. Pelvis: The bladder is mostly empty. 3 mm calcification at the left UVJ. Absent uterus. Bilateral ova eric not confidently visualized.. Soft Tissues: Soft tissues and body wall unremarkable. Bones: No acute osseous finding. IMPRESSION: Subsegmental left medial lower lobe atelectasis or consolidation. Aspiration could also be considered based on location. Mild esophagitis/gastritis. Multiple indeterminate hepatic lesions measuring up to 9 mm in the left lobe, most likely representin g cysts or hemangiomas. No additional recommendation for imaging unless the patient is at high risk ( history of malignancy with propensity to metastasize to the liver, cirrhosis, or other hepatic risk f actors), in which case recommend follow-up MRI of the liver in 3-6 months. 3 mm calcification at the left UVJ causing mild obstructive uropathy. Reviewed, dictated and finalized at location K. IMPRESSION: Subsegmental left medial lower lobe atelectasis or consolidation. Aspiration co uld also be considered based on location. Mild esophagitis/gastritis. Multiple indeterminate hepatic lesions measuring up to 9 mm in the left lobe, m ost likely representing cysts or hemangiomas. No additional recommendation for imaging unless the patient is at high risk (history of malignancy with propensi ty to metastasize to the liver, cirrhosis, or other hepatic risk factors), in w [facility] case recommend follow-up MRI of the liver in 3-6 months. 3 mm calcification at the left UVJ causing mild obstructive uropathy.
--- NOTE | ~2024-03-09 | XR_ITS ---
EXAMINATION: XR chest 1V portable Exam Date/Time: 03/09/2024 22:40 CDT HISTORY: LEFT FLANK PAIN Comparison: 09/04/2018. RESULT: Lines, tubes, and devices: None. Lungs and pleura: Subsegmental left basilar airspace disease. Streaky linear bibasilar opacities lik solo represent scar/atelectasis. Cardiomediastinal silhouette: Stable. Other: No acute osseous or upper abdominal finding. IMPRESSION: Subsegmental atelectasis/consolidation in the left lower lung. Reviewed, dictated and finalized at location K.
[2024-03-09 22:10] VITALS: BP 144/56; PULSE 53; RESP 18; TEMP 37.8; O2SAT 99
--- NOTE | 2024-03-09 22:22 | ECG_ITS ---
Test Date: 2024-03-09 22:39:37 Measurements Intervals [place] Rate: 53 P: 61 TN: 174 QRS: 20 QRSD: 114 T: 49 QT: 451 QTc: 424 Interpretive Statements SINUS BRADYCARDIA DELAYED PRECORDIAL R/S TRANSITION MINIMAL Q WAVES- HIGH LATERAL LEADS BORDERLINE ECG No previous ECG available for comparison Electronically Signed On 03-10-2024 06:48:36 CDT by Lester Rousseau D.O.
--- NOTE | 2024-03-09 22:24 | ED.ABDPAIN ---
HPI - Abdominal Pain General Chief Complaint: Abdominal Pain Stated Complaint: Abdominal Pain Time Seen by Provider: 03/09/24 22:10 Source: patient and family Mode of arrival: ambulatory Limitations: no limitations History of Present Illness HPI narrative: this is a 68-year-old female with history of thyroid cancer presents with abdominal pain with nausea and episode of vomiting with low-grade fever and chills with no diarrhea or constipation. Abdominal pain localized to the left lower quadrant with some suprapubic tenderness with no flank pain no dysuria. Pain started few hours ago and currently are pain level is he has stopped after she had an episode of vomiting earlier. MD elicited complaint: abdominal pain Onset (ago): hour(s) Pain Consistency: intermittent Location: periumbilical, LLQ and suprapubic Severity: mild Quality: aching Migration to: no migration Related Data Home Medications Medication Instructions Recorded Confirmed dabrafenib 75 mg capsule (Tafinlar) 75 mg PO QID 01/07/23 03/09/24 trametinib 2 mg tablet (Mekinist) 2 mg PO DAILY 01/07/23 03/09/24 Allergies Allergy/AdvReac Type Severity Reaction Status Date / Time sulfamethoxazole [Bactrim] Allergy Intermediate Unknown Verified 03/09/24 22:20 trimethoprim Allergy Unknown Rash Verified 03/09/24 22:20 Review of Systems Review of Systems: All systems reviewed & are unremarkable except as noted in HPI and below PMFSH Past Medical History Medical History (Updated 03/10/24 @ 00:26 by Kory Brar MD) H/O malignant neoplasm of thyroid Surgical History Surgical History History of 2 sections History of appendectomy 2004 Hx of hysterectomy with oophorectomy 2004 Family History Family History Mother Family history of type 2 diabetes mellitus Other Family history of dementia Social History Social History Smoking status: Never smoker Tobacco type: cigarettes Alcohol intake: current Drinks per week: 1 Substance use: never Lack of Transportation: No Lack of Food: Never True Current Housing: I Have Housing Concerned About Future Housing: No Difficulty Paying Gas/Electric Bills: No Difficulty Paying for Meds: No Currently Unemployed: No Education: Grade School Difficulty w/ Childcare or Family Care: No Living arrangements: with family Exam Const: General: healthy appearing and no acute distress Nutritional Appearance: well nourished Orientation/consciousness: patient oriented x3 Limitations: no limitations Eyes: Conjunctivae: conjunctivae normal Chest: Chest palpation & inspection: normal inspection of the chest Resp: Effort & Inspection: normal respiratory effort Auscultation: clear to auscultation bilaterally Cardio: Rate: regular rate Rhythm: regular rhythm GI: GI Palp: Yes Soft to palpation and Yes Tenderness to palpation present (GI) : General: Yes Bladder palpation abnormal Skin: General skin exam: normal color Rashes: no rashes Extrem: General: normal to inspection and no clubbing, cyanosis or edema Course Course Emergency Course: Patient started on IV fluids and received IV Zofran, blood work performed and reviewed Patient had CT scan of the abdomen and pelvis a 3 mm UVJ left kidney stone Patient had chest x-ray performed atelectasis Vital Signs Vital signs: Vital Signs Temperature 37.8 C H 03/09/24 22:10 Pulse Rate 53 L 03/09/24 22:10 Respiratory Rate 18 03/09/24 22:10 Blood Pressure 144/56 H 03/09/24 22:10 Pulse Oximetry 99 03/09/24 22:10 Oxygen Delivery Room Air 03/09/24 22:10 Temperature 37.8 C H 03/09/24 22:10 Pulse Rate 58 L 03/09/24 23:54 Respiratory Rate 16 03/09/24 23:54 Blood Pressure 109/55 L 03/10/24 00:16 Pulse Oximetry 100 03/10/24 00:16
[2024-03-09] MEDS: ONDANSETRON INJ 4 MG/2 ML VIAL IV PUSH (22:49)
[2024-03-09] MEDS: SODIUM CHLORIDE 0.9% IV 1,000 ML 999 ML IV CONT ×2 (22:51→22:53)
[2024-03-09 22:59] LABS: Basophils Absolute Auto 0.02 K/mm3 (0.00-0.10); Basophils Percent Auto 0.4 % (0.0-1.0); Hematocrit 28.5 % (35.0-42.0); Hemoglobin 9.1 g/dL (11.7-13.8); Immature Granulocyte Absolute 0.02 K/mm3 (0.00-0.00); Immature Granulocyte Percent A 0.4 % (0.0-0.0); Lymphocytes Absolute Auto 0.86 K/mm3 (1.10-4.50); Lymphocytes Percent Auto 16.9 % (18.0-42.0); Mean Corpuscular HGB Conc 31.9 g/dL (32-36); Mean Corpuscular Hemoglobin 27.7 pg (27.0-31.0); Mean Corpuscular Volume 86.6 fL (78.0-102.0); Mean Platelet Volume 8.5 fl (9.2-11.8); Monocytes Absolute Auto 0.33 K/mm3 (0.10-0.90); Monocytes Percent Auto 6.5 % (2.0-11.0); Neutrophils Absolute Auto 3.85 K/mm3 (1.70-7.20); Neutrophils Percent Auto 75.8 % (50.0-70.0); Platelet Count Result 230 K/mm3 (150-420); Red Blood Count 3.29 M/mm3 (4.20-5.40); Red Cell Distribution Width 14.9 % (11.6-14.4); White Blood Count 5.1 K/mm3 (4.8-10.8)
[2024-03-09 23:04] VITALS: BP 109/62; PULSE 56; RESP 18; O2SAT 98
--- NOTE | 2024-03-09 23:06 | PC.NURSE ---
Pt resting comfortably in stretcher. at bedside.
[2024-03-09 23:14] LABS: Partial Thromboplastin Time 49.5 Sec (23.9-30.70); Prothrombin Time 11.4 Seconds (9.50-12.1)
[2024-03-09 23:18] LABS: Alanine Aminotransferase 21 U/L (14-59); Albumin Level 2.4 g/dL (3.4-5.0); Alkaline Phosphatase 113 U/L (46-116); Anion Gap 6 mmol/L (4-12); Aspartate Amino Transferase 17 U/L (15-37); Bilirubin,Total 0.2 mg/dL (0.00-1.00); Blood Urea Nitrogen 17 mg/dL (7-18); Calcium 8.9 mg/dL (8.5-10.1); Carbon Dioxide 32 mmol/L (21-32); Chloride 102 mmol/L (98-108); Estimated CRCL calculation 46 ml/min; Estimated Glomerular Filt Rate 60; Glucose 133 mg/dL (70-99); Lipase 41 U/L (16-77); Osmolality Calculated 293 mOsm/kg (285-295); Potassium 3.8 mmol/L (3.5-5.1); Sodium 140 mmol/L (136-145); Total Protein 6.2 g/dL (6.4-8.2); Troponin I 4.8 ng/L (0.00-60.4)
[2024-03-09 23:20] LABS: Lactic Acid Reflex 1.6 mmol/L (0.4-2.0)
[2024-03-09 23:39] LABS: SARS-CoV-2 RNA PCR Negative (Negative)
[2024-03-09 23:41] LABS: Influenza A QL RT-PCR Negative (Negative); Influenza B QL RT-PCR Negative (Negative); RSV RNA, RT-PCR Negative (Negative)
[2024-03-09 23:52] LABS: Add Urine Microscopic? YES; Appearance Urine Clear (Clear); Bilirubin Urine Negative (Negative); Blood Urine 3+ (Negative); Color Urine Light Yellow (Yellow); Glucose Urine UA Negative (Negative); Ketones Urine Negative (Negative); Leukocyte Esterase Ur Negative LEU/UL (Negative); Nitrate Urine Negative (Negative); Protein Urine Negative (Negative); Urobilinogen Urine 0.2 mg/dL (0.2-1.0); pH Urine 6.5 (5.0-8.0)
[2024-03-09 23:54] VITALS: BP 127/55; PULSE 58; RESP 16; O2SAT 99
--- NOTE | 2024-03-09 23:55 | PC.NURSE ---
Pt resting comfortably in stretcher. at bedside. Gave pt another blanket. Pt states that after she vomited, right after arrival, her stomach stopped hurting.
[2024-03-09 23:57] LABS: Bacteria Urine None seen /hpf; RBC Urine >75 /hpf (0-2); Squamous Epithelial Cell Urine None seen /hpf (Few); WBC Urine 0-3 /hpf (0-3)
[2024-03-10 00:06] VITALS: O2SAT 83
[2024-03-10 00:07] VITALS: BP 123/56; O2SAT 100
[2024-03-10 00:16] VITALS: BP 109/55; O2SAT 100
--- NOTE | 2024-03-10 00:22 | PC.NURSE ---
Pt resting comfortable. ERP at bedside. also in room.
--- NOTE | 2024-03-16 13:32 | PC.NURSE ---
FINAL BLOOD CULTURE RESUTS: NO GROWTH AFTER 5 DAYS. NO FURTHER ACTION OR TREATMENT NEEDED.
--- NOTE | 2024-03-18 13:47 | PC.NURSE ---
final blood cultures x2 reviewed, no growth after 5 days. no change in plan of care
== END 2024-03-10 00:39 | disposition home or self-care (01) ==
PROVIDERS: Emergency Provider Emergency Medicine; PCP Nurse Practitioner Family
DX: N20.1 Calculus of ureter (principal)
CPT/HCPCS: 36415; 71045; 74177; 80053; 81001; 83605; 83690; 84484; 85025; 85610; 85730; 87040; 87637; 93005; 96361; 96374; 99284; J2405; J7030; Q9967

== ENCOUNTER 2024-04-06 10:34 | Outpatient (CLI) | payer MEDICARE, SELFPAY ==
[2024-04-06 10:55] LABS: Add Urine Microscopic? YES; Appearance Urine Clear (Clear); Bilirubin Urine Negative (Negative); Blood Urine 3+ (Negative); Color Urine Light Yellow (Yellow); Glucose Urine UA Negative (Negative); Ketones Urine Negative (Negative); Leukocyte Esterase Ur 3+ LEU/UL (Negative); Nitrate Urine Positive (Negative); Protein Urine 1+ (Negative); Specific Grav Ur 1.015 (1.010-1.020); Urobilinogen Urine 0.2 mg/dL (0.2-1.0)
[2024-04-06 11:06] LABS: Bacteria Urine 1+ /hpf; RBC Urine 51-75 /hpf (0-2); Squamous Epithelial Cell Urine Rare /hpf (Few); WBC Urine 51-75 /hpf (0-3)
[2024-04-06 11:27] LABS: Free T4 Free Thyroxine 1.44 ng/dL (0.76-1.46)
[2024-04-06 11:32] LABS: Thyroid Stimulating Hormone < 0.01 uIU/mL (0.36-3.74)
== END 2024-04-06 10:35 | disposition home or self-care (01) ==
LOC: CHSLAB 10:35
PROVIDERS: PCP Nurse Practitioner Family; Visit Provider Nurse Practitioner Family
DX: R82.90 Unspecified abnormal findings in urine (principal); Z87.898 Personal history of other specified conditions; Z85.850 Personal history of malignant neoplasm of thyroid
CPT/HCPCS: 36415; 81001; 84439; 84443; 87086

== ENCOUNTER 2024-09-22 14:16 | Outpatient (CLI) | payer MEDICARE, SELFPAY ==
--- NOTE | ~2024-09-22 | XR_ITS ---
XR chest 2V Ordering provider: Fermin Farooq APRN History: 69 years Female with . COUGH,SOB,[id number] . Comparison: March 09, 2024 FINDINGS: MEDIASTINUM: The cardiac silhouette is not enlarged. LUNGS: No infiltrates, effusions or pneumothorax. OTHER: No free air under the diaphragm. Degenerative the spine. IMPRESSION: No acute cardiopulmonary pathology. Reviewed, dictated and finalized at location A.
--- OUTSIDE RECORDS SUMMARY | 2024-09-22 14:19 | XMS_ITS | Encounter Summary ---
Author Organization [facility] Healthcare Address [address] [place] [address] Care Team Providers Care Hospital Account Liaison Name Role Phone DanielSejal holden Bijal RODRIGUEZ Primary Care Provider [phone] Martin Greenberg MD Unavailable [phone] Noe Quevedo MD Unavailable [phone] Kari Orr MD Unavailable Bruno Ennis MD Unavailable [phone] Kari Orr MD Unavailable Encounter Details Date Type Department Care Team (Late st Contact Info) Description 03/13/2020 Telephone [facility] [address] [place] [id number] Nesha Lemon RN Social History Tobacco Use Types Packs/Day Years Used Date Smoking Tobacco: Former Cigarettes 0.3 3 1 975 - 1978 Smokeless Tobacco: Never Alcohol Use Standard Drinks/Week Comments Yes 1 (1 standard drink = 0.6 oz pur e alcohol) AUDIT-C Answer Date Recorded Frequency of Alcohol Consumption 2-4 times a wed01/30/2019 Average Number of Drinks Not on file 019 Frequency of Binge Drinking Not on file 01/12 Comments No Sex and Gender Information Value Date Recorded Sex Assigned at Not on file Legal Sex Female 3:42 PM CDT Gender Identity Not on file Sexual Orientation Not on file documented as of this encounter Plan of Treatment Not on file documented as of this encounter Visit Diagnoses Not on filedocumented in this encounter Care Teams Hospital Account Liaison Relationship Specialty Start Date End Date Sejal Romero NP [address] [place] [address] PCP - General Nurse Practitioner 12/01/19 Martin Greenberg MD [address] [place] [address] Medical Oncologist/Performance Test Engineer Medical Oncology 08/19/21 Noe Quevedo MD [address] [place] [address] Referring Physician Surgical Oncology 08/19/21 Kari Orr MD [address] [place] [address] Endocrinology 12/01/19 08/01/23 Bruno Ennis MD [address] [place] [address] Radiation Oncologist Radiation Oncology 03/20/19 4 Kari Orr MD [address] [place] [address] Internal Medicine 04/28/22 09/15/22 documented as of this encounter
--- OUTSIDE RECORDS SUMMARY | 2024-09-22 14:19 | XMS_ITS | Clinical Summary ---
Author Organization [facility] Address [facility] [place] [address] Care Team Providers Care Lubricator Granulator Name Role Phone Sejal Romero NP Primary Care Provider [phone] Martin Greenberg MD Unavailable [phone] Noe Quevedo MD Unavailable [phone] Allergies Active Allergy Reactions Criticality Noted Date Comments Sulfa (Sulfonamide Antibiotics) Rash Medium 01/12 Sulfamethoxazole-Trimethoprim Rash Medium 2018 Medications calcium carbonate-vitam in D3 (CALTRATE 600 + D) 1500 mg (600 mg elemental) -400 units per tablet Take 1 tablet by mouth daily Active Mekinist 2 mg tablet 08/25/2022 Active daBRAfenib (Tafinlar) 75 mg capsuleIndicati ons:Papillary thyroid carcinoma (HCC),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) TAKE 2 CAPSULES BY MOUTH EVERY 12 HOURS ON AN EMPTY STOMACH 1 HOUR BEFORE OR 2 HOURS AFTER A MEAL (SWALLOW WHOLE, DO NOT OPEN CAPSULES) 120 capsule 11 01/15/2023 Active levothyroxine (SYNTHROID) 125 mcg tablet Take 1 tablet (125 mcg total) by mouth daily 06/22/2024 Active Active Problems Problem Noted Date Diagnosed Date Secondary malignant neoplasm of cervical lymph n ode 10/21/2021 Metastatic carcinoma 08/19/2021 Overview (08/19/2021): Added automatically from request for surgery [id number] Papillary thyroid carcinoma (CMS/HCC) 10/17/2019 Hypothyroidism 10/17/2019 Syncope 02/27/2019 Thyroid cancer 02/01/2019 Cancer Staging:Pathologic: pT3b, pN1b, Age at diagnosis: >= 55 years - Unsigned Overview (02/01/2019): Added automatically from request for surgery [id number] Encounters Date Type Department Care Team Description 09/18/2024 2:30 PM CDT Office Visit [facility] [address] [place] [phone] Martin Greenberg MD Papillary thyroid carcinoma (HCC) 09/18/2024 1:30 PM CDT Lab [facility] Lab [address] [place] [phone] Papillary thyroid carcinoma (HCC) 09/18/2024 1:15 PM CDT Lab [facility] [address] [place] [phone] Papillary thyroid carcinoma (HCC) 06/28/2024 12:45 PM DOCTOR OF NAPRAPATHIC MEDICINE Office Visit [facility] [address] [place] [phone] Martin Greenberg MD Papillary thyroid carcinoma (HCC) (Primary Dx); 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) 06/28/2024 12:00 PM DOCTOR OF NAPRAPATHIC MEDICINE Lab [facility] [address] [place] [phone] Papillary thyroid carcinoma (CMS/HCC) (HCC); 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) 06/28/2024 11:45 AM DOCTOR OF NAPRAPATHIC MEDICINE Lab [facility] [address] [place] [phone] 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); Papillary thyroid carcinoma (CMS/HCC) (HCC) 06/26/2024 Orders Only [facility] [address] [place] [phone] Martin Greenberg MD Papillary thyroid carcinoma (HCC) (Primary Dx); 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) from Last 3 Months Immunizations Immunization Administration Dates Next Due Influenza, Unspecified 04/03/2021 Tdap 01/16/2010 Surgical History Surgery Date Site/Laterality Comments SECTION [id number] HYSTERECTOMY 06/14/2004 - 06/13/2005 THYROID SURGERY 06/14/2018 - 06/13/2019 US GUIDED BIOPSY LYMPH NODE SUPERFICIAL LEFT 06/23/2023 N/A Medical History Medical History Date Comments GERD (gastroesophageal reflux disease) Thyroid cancer (HCC) Family History Medical History Relation Name Comments Parkinsonism Father Cancer Father's Sister Diabetes Mother valve repair Mother Anesthesia problems Neg Hx Relation Name Status Comments Father Father's Sister Mother Social History Tobacco Use Types Packs/Day Years Used Date Smoking Tobacco: Former Cigarettes 0.3 3 1 975 - 1977 Passive Smoke Exposure: Past Smokeless Tobacco: Never Tobacco Cessation:Counseling Given: Not Answered Alcohol Use Standard Drinks/Week Comments Yes 1 (1 standard drink = 0.6 oz pur e alcohol) AUDIT-C Answer Date Recorded Q1: How often do you have a drink containing alc ohol? Never 09/02/2021 Q2: How many drinks containi ng alcohol do you have on a typical day when you are drinking? 1 or 2 09/02/2021 Q3: How often do you have six or more drinks on one occasion? Never 09/02/2021 Comments No Sex and Gender Information Value Date Recorded Sex Assigned at Not on file Legal Sex Female 3:42 PM CDT Gender Identity Not on file Sexual Orientation Not on file Obstetrics History Last Filed Vital Signs Vital Sign Reading Time Taken Comments Blood Pressure 136/69 09/18/2024 2:04 PM CDT Pulse 57 09/18/2024 2:04 PM CDT Temperature 36.8 C (98.3 F) 09/18/2024 2:04 PM CDT Respiratory Rate 16 09/18/2024 2:04 PM CDT Oxygen Saturation 100% 09/18/2024 2:04 PM CDT Inhaled Oxygen Concentration - - Weight 64.2 kg (141 lb 9.6 oz) 09/18/2024 2:04 P M CDT Height 165.1 cm (5' 5 ) 04/12/2024 1:25 PM CDT Body Mass Index 23.56 04/12/2024 1:25 PM CDT Plan of Treatment Health Maintenance Due Date Last Done Comments Breast Cancer Screening-Mammogram 1956 Colon Cancer Screening-Colonoscopy 1955 Depression Screening 1956 Hepatitis C Screening 1956 Osteoporosis Screening-Bone Density Scan 1956 Hepatitis B Screening 1974 Pneumococcal vaccine 65+ (1 of 2 - PCV) 1975 Zoster Vaccine (1 of 2) 1975 DTaP/Tdap/Td Vaccine (2 - Td or Tdap) 01/17/202010/2009 Well Visit 65+ 2021 Fall Risk Assessment 09/03/2022 09/03/2021 Covid-19 Vaccine ( - season) 2024 04/18/2021, 07/08/2020, 06/10/2020 Influenza Vaccine (Season Ended) 2025 04/03/20 21 Procedures Procedure Name Priority Date/Time Associated Diagnosis Comments DIFFERENTIAL AUTO Routine 09/18/2024 1:0 9 PM CDT Papillary thyroid carcinoma (HCC) CBC WITH AUTO DIFFERENTIAL Routine 09/18/2024 1:09 PM CDT Papillary thyroid carcinoma (HCC) REFLEX THYROGLOBULIN, TUMOR MARKER, IA, S Routine 09/18/2024 12:59 PM CDT EGFR Routine 09/18/2024 12:59 PM CDT Papillary thyroid carcinoma (HCC) TSH Routine 09/18/2024 12:59 PM CDT Papillary thyroid carcinoma (HCC) T4, FREE Routine 09/18/2024 12:59 PM CDT Papillary thyroid carcinoma (HCC) THYROGLOBULIN REFLEX TO MS OR IA Routine 09/18/2024 12:59 PM CDT Papillary thyroid carcinoma (HCC) COMPREHENSIVE METABOLIC PANEL Routine 09/18/2024 12:59 PM CDT Papillary thyroid carcinoma (HCC) REFLEX THYROGLOBULIN, TUMOR MARKER, IA, S Routine 06/28/2024 11:44 AM DOCTOR OF [facility]ATHIC MEDICINE EGFR Routine 06/28/2024 11:44 AM DOCTOR OF NAPRAPATHIC MEDICINE 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) Papillary thyroid carcinoma (HCC) DIFFERENTIAL AUTO Routine 06/28/2024 11: 44 AM DOCTOR OF NAPRAPATHIC MEDICINE 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) Papillary thyroid carcinoma (HCC) TSH Routine 06/28/2024 11:44 AM DOCTOR OF NAPRAPATHIC MEDICINE 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) Papillary thyroid carcinoma (CMS/HCC) (HCC) T4, FREE Routine 06/28/2024 11:44 AM DOCTOR OF NAPRAPATHIC MEDICINE 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) Papillary thyroid carcinoma (CMS/HCC) (HCC) THYROGLOBULIN REFLEX TO MS OR IA Routine 06/28/2024 11:44 AM DOCTOR OF NAPRAPATHIC MEDICINE 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) Papillary thyroid carcinoma (CMS/HCC) (HCC) CBC WITH AUTO DIFFERENTIAL Routine 06/28/2024 11:44 AM DOCTOR OF NAPRAPATHIC MEDICINE 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) Papillary thyroid carcinoma (CMS/HCC) (HCC) COMPREHENSIVE METABOLIC PANEL Routine 06/28/2024 11:44 AM DOCTOR OF NAPRAPATHIC MEDICINE 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) Papillary thyroid carcinoma (CMS/HCC) (HCC) from Last 3 Months Results * (ABNORMAL) Differential, auto (09/18/2024 1:09 PM CDT) Neutrophil abs 1.92 1.50 - 6.50 K/cumm Comment:Testing performed by : [facility], [address] [place] [phone] Lymphocyte abs 0.71(L) 0.80 - 3.30 K/cumm ANDRIA FARMER Comment:Testing performed by : [facility], [address] [place] [phone] Monocyte abs 0.32 0.20 - 0.80 K/cumm ANDRIA FARMER Comment:Testing performed by : [facility], [address] [place] [phone] Eosinophil abs 0.05 0.00 - 0.50 K/cumm [facility] Comment:Testing performed by : [facility], [address] [place] [phone] Basophil abs 0.02 0.00 - 0.10 K/cumm [facility] Comment:Testing performed by : [facility], [address] [place] [phone] Neutrophil pct 63.5 % [facility] Comment: Interpretive Data Percent cell count reference ranges are not reported, since discordance with absolute values may lead to misinterpretation of CBC data. Current Interpretive Data was last revised on 2017. Testing performed by: [facility], [address] [place] [phone] Lymphocyte pct 23.6 % [facility] Comment: Interpretive Data Percent cell count reference ranges are not reported, since discordance with absolute values may lead to misinterpretation of CBC data. Current Interpretive Data was last revised on 2017. Testing performed by: [facility], [address] [place] [phone] Monocyte pct 10.6 % [facility] Comment: Interpretive Data Percent cell count reference ranges are not reported, since discordance with absolute values may lead to misinterpretation of CBC data. Current Interpretive Data was last revised on 2017. Testing performed by: [facility], [address] [place] [phone] Eosinophil pct 1.6 % [facility] Comment: Interpretive Data Percent cell count reference ranges are not reported, since discordance with absolute values may lead to misinterpretation of CBC data. Current Interpretive Data was last revised on 2017. Testing performed by: [facility], [address] [place] [phone] Basophil pct 0.8 % [facility] Comment: Interpretive Data Percent cell count reference ranges are not reported, since discordance with absolute values may lead to misinterpretation of CBC data. Current Interpretive Data was last revised on 2017. Testing performed by: [facility], [address] [place] [phone] Blood 09/18/2024 1:09 PM CDT 09/18/2024 1:21 PM CDT Jamia Hutchins TELEVISION HOST LAB BLOOD ORDERABLES Final Result [facility] Department [place] [address] * (ABNORMAL) CBC with auto differential (09/18/2024 1:09 PM CDT) WBC 3.03(L) 3.80 - 9.90 K/cumm Comment:Testing performed by : [facility], [address] [place] [address] Hgb 11.6(L) 11.9 - 15.5 g/dL ANDRIA FARMER Comment:Testing performed by : [facility], [address] [place] [address] Hct 35.1(L) 35.6 - 45.5 % ANDRIA FARMER Comment:Testing performed by : [facility], [address] [place] [address] Plt 218 150 - 400 K/cumm ANDRIA FARMER Comment:Testing performed by : [facility], [address] [place] [address] MPV 6.9 6.8 - 10.4 fL ANDRIA FARMER Comment:Testing performed by : [facility], [address] [place] [address] RBC 4.10 3.90 - 5.20 M/cumm ANDRIA FARMER Comment:Testing performed by : [facility], [address] [place] [address] MCV 85.5 81.3 - 96.4 fL ANDRIA FARMER Comment:Testing performed by : [facility], [address] [place] [address] MCH 28.2 27.1 - 33.3 pg CERSAMIA FARMER Comment:Testing performed by : [facility], [address] [place] [phone] MCHC 32.9 32.3 - 35.7 g/dL [facility] Comment:Testing performed by : [facility], [address] [place] [phone] RDW CV 17.2(H) 11.1 - 14.9 % [facility] Comment:Testing performed by : [facility], [address] [place] [phone] NRBC abs 0.00 0.00 - 0.01 K/cumm [facility] Comment:Testing performed by : [facility], [address] [place] [phone] Blood 09/18/2024 1:09 PM CDT 09/18/2024 1:21 PM CDT us Jamia Hutchins TELEVISION HOST LAB BLOOD ORDERABLES Final Result [facility] Department [place] [address] * Reflex thyroglobulin, tumor marker, IA, S (09/18/2024 12:59 PM CDT) Thyroglobulin, Tumor Marker 0.2 < or = 33 ng/mL [facility] Thyroglobulin interp See Footnote [facility] Comment: Thyroglobulin (Tg) reference intervals are for patients with an intact thyroid and not for patients who have had surgery for thyroid cancer. Tg reference intervals in patients that have undergone thyroidectomy or any treatment for follicular thyroid cancer are dependent on the residual mass of the thyroid tissue after surgery. Tg results, regardless of concentration, should not be interpreted as absolute evidence for the presence or absence of papillary or follicular thyroid cancer. This result needs to be interpreted in the context of the clinical evaluation. ADDITIONAL INFORMATION PLEASE NOTE: The given cutoff of <1.8 IU/mL is for the detection of potential thyroglobulin antibody (TgAb) interference in thyroglobulin immunoassays. A thyroglobulin antibody (TgAb) reference cutoff of <4.0 IU/mL may be more suitable for the evaluation of autoimmune thyroiditis. The thyroglobulin and thyroglobulin antibody testing methods are immunoenzymatic assays manufactured by [employer] and performed on the [employer] DXI 800. Values obtained from different assay methods or kits may be different and cannot be used interchangeably. The results cannot be interpreted as absolute evidence for the presence or absence of malignant disease. Test Performed by: [facility] [address] [id number] Salvage Machine Operator: China Frank Ph.D.; CLIA# [id number] Blood 09/18/2024 12:5 9 PM CDT 09/18/2024 3:42 PM CDT Jamia Hutchins TELEVISION HOST LAB BLOOD ORDERABLES Final Result [facility] Department [place] [address] [facility] * eGFR (09/18/2024 12:59 PM CDT) eGFR 71 >=60 mL/min/1. 73 m2 Comment: Interpretive Data Reference Interval Normal >/= 90 mL/min/1.73m2 Mildly decreased* 60 - 89 mL/min/1.73m2 Mildly to moderately decreased 45 - 59 mL/min/1.73m2 Moderately to severely decreased 30 - 44 mL/min/1.73m2 Severely decreased 15 - 29 mL/min/1.73m2 Kidney Failure < 15 mL/min/1.73m2 *Relative to young adult level Estimated glomerular filtration rate is determined by the 2020 CKD-EPI equation recommended by the National Kidney Foundation (A Unifying Approach to GFR Estimation: Recommendations of the NKF-ASK Task Force on Reassessing the Inclusion of Race in Diagnosing Kidney Disease, JASN 2020). The CKD-EPI equation should not be used for patients with unstable renal function and has not been validated in children and those over 70. Current interpretive data was last reviewed 2021. Blood 09/18/2024 12:5 9 PM CDT 09/18/2024 1:22 PM CDT Jamia Hutchins NP LAB BLOOD ORDERABLES Final Result Performing Organization Address City/[facility] Co de Phone Number [facility] [place] [address] * Thyroglobulin reflex to MS or IA (09/18/2024 12:59 PM CDT) Anti-thyroglobulin <1.8 <1.8 IUnits/mL [facility] Comment: Thyroglobulin Antibody < 1.8 IU/mL. Thyroglobulin performed by Immunoassay to follow. Test Performed by: [facility] [address] [place] [address] Salvage Machine Operator: China Frank Ph.D.; CLIA# [id number] Blood 09/18/2024 12:5 9 PM CDT 09/18/2024 3:42 PM CDT Jamia Hutchins NP LAB BLOOD ORDERABLES Final Result Performing Organization Address [facility] Co de Phone Number [facility] Department [place] [address] [facility] * (ABNORMAL) TSH (09/18/2024 12:59 PM CDT) Pathologist [facility] Thyroid Stimulating Hormone 0.01(L) 0.30 - 4.20 mcIUnit/mL Blood 09/18/2024 12:5 9 PM CDT 09/18/2024 1:22 PM CDT Jamia Hutchins NP LAB BLOOD ORDERABLES Final Result Performing Organization Address [facility] Co de Phone Number [facility] [place] [address] * T4, free (09/18/2024 12:59 PM CDT) Pathologist [facility] Free T4 1.50 0.90 - 1.70 ng/dL Blood 09/18/2024 12:5 9 PM CDT 09/18/2024 1:22 PM CDT Jamia Hutchins TELEVISION HOST LAB BLOOD ORDERABLES Final Result [facility] Department [place] [address] * (ABNORMAL) Comprehensive metabolic panel (09/18/2024 12:59 PM CDT) [facility] Sodium 141 135 - 145 mmol/L Potassium, pl 3.9 3.3 - 4.9 mmol/L [facility] Chloride 104 97 - 110 mmol/L [facility] CO2 27 22 - 32 mmol/L [facility] Anion gap 10 2 - 15 mmol/L [facility] BUN 17 6 - 25 mg/dL [facility] Creatinine 0.89 0.60 - 1.10 mg/dL [facility] Glucose 97 70 - 199 mg/dL [facility] Comment: Interpretive Data Fasting glucose >/= 126 mg/dl is diagnostic for diabetes. Fasting is defined as no caloric intake for at least 8 hours. Fasting glucose between 100 mg/dl to 125 mg/dl is diagnostic of prediabetes. In a patient with classic symptoms of hyperglycemia or hyperglycemic crisis, a random glucose >/= 200 mg/dl is diagnostic for diabetes. In the absence of unequivocal hyperglycemia, results should be confirmed by repeat testing. The classification and Diagnosis of Diabetes Diabetes Care 2021; 46: S19-S40. Current interpretive data was last revised 2022. Calcium 9.2 8.5 - 10.3 mg/dL [facility] Bilirubin, total 0.3 0.1 - 1.2 mg/dL [facility] Protein, pl 7.1 6.5 - 8.5 g/dL [facility] Albumin 3.5 3.5 - 5.0 g/dL [facility] Alk phos 154(H) 40 - 130 Units/L [facility] ALT 15 7 - 45 Units/L [facility] AST 23 10 - 45 Units/L [facility] Blood 09/18/2024 12:5 9 PM CDT 09/18/2024 1:22 PM CDT Jamia Hutchins NP LAB BLOOD ORDERABLES Final Result [facility] Department [place] [address] * (ABNORMAL) Reflex thyroglobulin, tumor marker, IA, S (06/28/2024 11:44 AM DOCTOR OF [facility]ATH[facility]ICINE) Thyroglobulin, Tumor Marker 0.1(H) ng/mL [facility] Comment: REFERENCE VALUE Athyrotic <0.1 Intact Thyroid <=33 Thyroglobulin interp See Footnote [facility] Comment: Thyroglobulin (Tg) levels must be interpreted in the context of TSH levels, serial Tg measurements and radioiodine ablation status. Tg levels of 0.1-2.0 ng/mL in athyrotic individuals on suppressive therapy indicate a low risk of clinically detectable recurrent papillary/follicular thyroid cancer. ADDITIONAL INFORMATION PLEASE NOTE: The given cutoff of <1.8 IU/mL is for the detection of potential thyroglobulin antibody (TgAb) interference in thyroglobulin immunoassays. Thyroglobulin flagging is based on athyrotic reference values. A thyroglobulin antibody (TgAb) reference cutoff of <4.0 IU/mL may be more suitable for the evaluation of autoimmune thyroiditis. The thyroglobulin and thyroglobulin antibody testing methods are immunoenzymatic assays manufactured by [employer] and performed on the [employer] D[employer] 800. Values obtained from different assay methods or kits may be different and cannot be used interchangeably. The results cannot be interpreted as absolute evidence for the presence or absence of malignant disease. Test Performed by: [facility] [address] [place] [address] Salvage Machine Operator: China Frank Ph.D.; CLIA# [id number] Blood 06/28/2024 11:4 4 AM DO[facility] OF [facility]ATHIC MEDICINE 06/28/2024 1:35 PM DOCTOR OF NAPRAPATHIC MEDICINE Jamia Hutchins NP LAB BLOOD ORDERABLES Final Result [facility] [employer] [place] [address] [facility] * eGFR (06/28/2024 11:44 AM DOCTOR OF NAPRAPATHIC MEDICINE) eGFR 75 >=60 mL/min/1. 73 m2 Comment: Interpretive Data Reference Interval Normal >/= 90 mL/min/1.73m2 Mildly decreased* 60 - 89 mL/min/1.73m2 Mildly to moderately decreased 45 - 59 mL/min/1.73m2 Moderately to severely decreased 30 - 44 mL/min/1.73m2 Severely decreased 15 - 29 mL/min/1.73m2 Kidney Failure < 15 mL/min/1.73m2 *Relative to young adult level Estimated glomerular filtration rate is determined by the 2020 CKD-EPI equation recommended by the National Kidney Foundation (A Unifying Approach to GFR Estimation: Recommendations of the NKF-ASK Task Force on Reassessing the Inclusion of Race in Diagnosing Kidney Disease, JASN 2020). The CKD-EPI equation should not be used for patients with unstable renal function and has not been validated in children and those over 70. Current interpretive data was last reviewed 2021. Blood 06/28/2024 11:4 4 AM DOCTOR OF [facility]APRAPATHIC MEDICINE 06/28/2024 11:46 AM DOCTOR OF NAPRAPATHIC MEDICINE Jamia Hutchins NP LAB BLOOD ORDERABLES Final Result [facility] [place] [address] * Differential, auto (06/28/2024 11:44 AM DOCTOR OF NAPRAPATHIC MEDICINE) Pathologist [facility] Neutrophil abs 3.6 1.5 - 6.5 K/cumm Comment:Testing performed by : [facility], [address] [place] [phone] Lymphocyte abs 0.9 0.8 - 3.3 K/cumm [facility] Comment:Testing performed by : [facility], [address] [place] [phone] Monocyte abs 0.4 0.2 - 0.8 K/cumm [facility] Comment:Testing performed by : [facility], [address] [place], [place] [phone] Eosinophil abs 0.1 0.0 - 0.5 K/cumm [facility] Comment:Testing performed by : [facility], [address] [place], [place] [phone] Basophil abs 0.0 0.0 - 0.1 K/cumm [facility] Comment:Testing performed by : [facility], [address] [place], [place] [phone] Neutrophil pct 72.1 % [facility] Comment: Interpretive Data Percent cell count reference ranges are not reported, since discordance with absolute values may lead to misinterpretation of CBC data. Current Interpretive Data was last revised on 2017. Testing performed by: [facility], [address] [place] [phone] Lymphocyte pct 17.6 % [facility] Comment: Interpretive Data Percent cell count reference ranges are not reported, since discordance with absolute values may lead to misinterpretation of CBC data. Current Interpretive Data was last revised on 2017. Testing performed by: [facility], [address] [place] [phone] Monocyte pct 7.9 % [facility] Comment: Interpretive Data Percent cell count reference ranges are not reported, since discordance with absolute values may lead to misinterpretation of CBC data. Current Interpretive Data was last revised on 2017. Testing performed by: [facility], [address] [place] [phone] Eosinophil pct 1.9 % [facility] Comment: Interpretive Data Percent cell count reference ranges are not reported, since discordance with absolute values may lead to misinterpretation of CBC data. Current Interpretive Data was last revised on 2017. Testing performed by: [facility], [address] [place] [phone] Basophil pct 0.5 % ANDRIA FARMER Comment: Interpretive Data Percent cell count reference ranges are not reported, since discordance with absolute values may lead to misinterpretation of CBC data. Current Interpretive Data was last revised on 2017. Testing performed by: [facility], [address] [place] [phone] Blood 06/28/2024 11:4 4 AM DOCTOR OF NAPRAPATHIC MEDICINE 06/28/2024 11:45 AM DOCTOR OF NAPRAPATHIC MEDICINE Jamia Hutchins NP LAB BLOOD ORDERABLES Final Result Performing Organization Address City/[facility] Co de Phone Number [facility] [place] [address] * Thyroglobulin reflex to [place] or [place] (06/28/2024 11:44 AM DOCTOR OF NAPRAPATHIC MEDICINE) Anti-thyroglobulin <1.8 <1.8 IUnits/mL [facility] Comment: Thyroglobulin Antibody < 1.8 IU/mL. Thyroglobulin performed by Immunoassay to follow. Test Performed by: [place] [address] Salvage Machine Operator: China Frank Ph.D.; CLIA# [id number] Blood 06/28/2024 11:4 4 AM DOCTOR OF NAPRAPATHIC MEDICINE 06/28/2024 1:35 PM DOCTOR OF NAPRAPATHIC MEDICINE Jamia Hutchins NP LAB BLOOD ORDERABLES Final Result [facility] [place] [address] [facility] * (ABNORMAL) CBC with auto differential (06/28/2024 11:44 AM DOCTOR OF NAPRAPATHIC MEDICINE) [facility] WBC 4.9 3.8 - 9.9 K/cumm Comment:Testing performed by : [facility], [address] [place], [place] [id number] Hgb 10.9(L) 11.9 - 15.5 g/dL CERNER BJ Comment:Testing performed by : [facility], [address] [place], [place] [id number] Hct 33.5(L) 35.6 - 45.5 % CERNER BJ Comment:Testing performed by : [facility], [address] [place], [place] [id number] Plt 249 150 - 400 K/cumm CERNER BJ Comment:Testing performed by : [facility], [address] [place], [place] [phone] MPV 6.5(L) 6.8 - 10.4 fL CERNER BJ Comment:Testing performed by : [facility], [address] [place], [place] [phone] RBC 3.94 3.90 - 5.20 M/cumm CERNER BJ Comment:Testing performed by : [facility], [address] [place], [place] [phone] MCV 85.1 81.3 - 96.4 fL CERNER BJ Comment:Testing performed by : [facility], [address] [place], [place] [phone] MCH 27.7 27.1 - 33.3 pg CERNER BJ Comment:Testing performed by : [facility], [address] [place] [address] MCHC 32.6 32.3 - 35.7 g/dL CERNER BJ Comment:Testing performed by : [facility], [address] [place], [place] [phone] RDW CV 15.9(H) 11.1 - 14.9 % CERNER BJ Comment:Testing performed by : [facility], [address] [place], [place] [phone] NRBC abs 0.00 0.00 - 0.01 K/cumm CERNER BJ Comment:Testing performed by : [facility], [address] [place] [phone] Blood 06/28/2024 11:4 4 AM DOCTOR OF NAPRAPATHIC MEDICINE 06/28/2024 11:45 AM DOCTOR OF NAPRAPATHIC MEDICINE Jamia Hutchins NP LAB BLOOD [place] [address] * (ABNORMAL) TSH (06/28/2024 11:44 AM DOCTOR OF NAPRAPATHIC MEDICINE) Pathologist [facility] Thyroid Stimulating Hormone 0.01(L) 0.30 - 4.20 mcIUnit/mL Blood 06/28/2024 11:4 4 AM DOCTOR OF NAPRAPATHIC MEDICINE 06/28/2024 11:46 AM DOCTOR OF NAPRAPATHIC MEDICINE Jamia Hutchins NP LAB BLOOD ORDERABLES Final Result Performing Organization Address [facility] [place] [address] * T4, free (06/28/2024 11:44 AM DOCTOR OF NAPRAPATHIC MEDICINE) Pathologist [facility] Free T4 1.56 0.90 - 1.70 ng/dL Blood 06/28/2024 11:4 4 AM DOCTOR OF NAPRAPATHIC MEDICINE 06/28/2024 11:46 AM DOCTOR OF NAPRAPATHIC MEDICINE Jamia Hutchins NP LAB BLOOD ORDERABLES Final Result Performing Organization Address City/[facility] [place] [address] * (ABNORMAL) Comprehensive metabolic panel (06/28/2024 11:44 AM DOCTOR OF NAPRAPATHIC MEDICINE) Sodium 144 135 - 145 mmol/L Potassium, pl 3.7 3.3 - 4.9 mmol/L [facility] Chloride 107 97 - 110 mmol/L [facility] CO2 32 22 - 32 mmol/L [facility] Anion gap 5 2 - 15 mmol/L [facility] BUN 16 6 - 25 mg/dL [facility] Creatinine 0.85 0.60 - 1.10 mg/dL [facility] Glucose 93 70 - 199 mg/dL [facility] Comment: Interpretive Data Fasting glucose >/= 126 mg/dl is diagnostic for diabetes. Fasting is defined as no caloric intake for at least 8 hours. Fasting glucose between 100 mg/dl to 125 mg/dl is diagnostic of prediabetes. In a patient with classic symptoms of hyperglycemia or hyperglycemic crisis, a random glucose >/= 200 mg/dl is diagnostic for diabetes. In the absence of unequivocal hyperglycemia, results should be confirmed by repeat testing. The classification and Diagnosis of Diabetes Diabetes Care 202; 46: S19-S40. Current interpretive data was last revised 2022. Calcium 9.6 8.5 - 10.3 mg/dL [facility] Bilirubin, total 0.2 0.1 - 1.2 mg/dL [facility] Protein, pl 7.1 6.5 - 8.5 g/dL [facility] Albumin 3.7 3.5 - 5.0 g/dL [facility] Alk phos 146(H) 40 - 130 Units/L [facility] ALT 14 7 - 45 Units/L [facility] AST 20 10 - 45 Units/L [facility] Blood 06/28/2024 11:4 4 AM DOCTOR OF NAPRAPATHIC MEDICINE 06/28/2024 11:46 AM DOCTOR OF NAPRAPATHIC MEDICINE Jamia Hutchins NP LAB BLOOD ORDERABLES Final Result [facility] Department of Laboratories [place], [place] [id number] from Last 3 Months Insurance MEDICARE Months Of Me MEDICARE Months Of Me Advance Directives For more information, please contact: [phone] * Full Code (Latest Code Status on File) Date Activated Date Inactivated Comments 09/02/2021 6:10 PM 09/03/2021 3:39 PM * Full Code Date Activated Date Inactivated Comments 02/27/2019 4:00 PM 03/01/2019 5:15 PM Care Teams Lubricator Granulator Relationship Specialty Start Date End Date Sejal Romero NP [address] [place] [address] PCP - General Nurse Practitioner 12/01/19 Martin Greenberg MD [address] [place] [address] Medical Oncologist/Merchandising Execution Associate Medical Oncology 08/19/21 Noe Quevedo MD [address] [place] [address] Referring Physician Surgical Oncology 08/19/21
--- OUTSIDE RECORDS SUMMARY | 2024-09-22 14:19 | XMS_ITS | Encounter Summary ---
Author Organization [facility] Address [address] [place] [address] Phone Care Team Providers Care Welt Pocket Machine Operator Name Role Phone Sejal Romero NP Primary Care Provider [phone] Martin Greenberg MD Unavailable [phone] Noe Quevedo MD Unavailable [phone] Kari Orr MD Unavailable Bruno Ennis MD Unavailable [phone] Kari Orr MD Unavailable Encounter Details Date Type Department Care Team (Late st Contact Info) Description 03/16/2022 Telephone [facility] Surgery [facility] Advanced Medicine 5th [place] [address] [place] [address] Yessica Marshall Social History Tobacco Use Types Packs/Day Years Used Date Smoking Tobacco: Former Cigarettes 0.3 3 1 975 - 1977 Smokeless Tobacco: Never Alcohol Use Standard Drinks/Week [...] on filedocumented in this encounter Care Teams Welt Pocket Machine Operator Relationship Specialty Start Date End Date Sejal Romero NP [address] [place] [address] PCP - General Nurse Practitioner 12/01/19 Martin Greenberg MD [address] [place] [address] Medical Oncologist/L[place]der Medical Oncology 08/19/21 Noe Quevedo MD [address] [place] [address] Referring Physician Surgical Oncology 08/19/21 Kari Orr MD [address] [place] [address] Endocrinology 12/01/19 08/01/23 Bruno Ennis MD [address] [place] [address] Radiation Oncologist Radiation Oncology 03/20/19 4 Kari Orr MD [address] [place] [address] Internal Medicine 04/28/22 09/15/22 documented as of this encounter
--- OUTSIDE RECORDS SUMMARY | 2024-09-22 14:19 | XMS_ITS ---
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 Metastatic carcinoma 08/19/2021 Overview (08/19/2021): Added automatically from request for surgery [id number] Papillary thyroid carcinoma (CMS/HCC) 10/17/2019 Hypothyroidism 10/17/2019 Syncope 02/27/2019 Thyroid cancer 02/01/2019 Cancer Staging:Pathologic: pT3b, pN1b, Age at diagnosis: >= 55 years - Unsigned Overview (02/01/2019): Added automatically from request for surgery [id number] Current Treatment and Therapy Plans Dabrafenib PO BID / Trametinib PO QD 28 Day Cycles* Plan Start Date:05/15/2022 Plan Provider:Martin Greenberg MD Linked Problems Papillary thyroid carcinoma (HCC) Treatment Medications Current Day (Day 1 , Cycle 30 - Planned for 09/18/2024) Next Day (Day 1, Cycle 31 - Planned for 10/16/2024) daBRAfenib (TAFINLAR)trametinib dimethyl sulfoxide (MEKINIST) daBRAfenib (TAFINLAR) 75 mg capsuletrametinib dimethyl sulfoxide (MEKINIST) 2 mg tablet daBRAfenib (TAFINLAR) 75 mg capsuletrametinib dimethyl sulfoxide (MEKINIST) 2 mg tablet Past Treatment and Therapy Plans No past plan information found. Radiation Treatments * Course Thyroid 1 03/21/2019 - 03/21/2019 Treatment Period Energy Fraction Dose Fractions Total Dose Plans Planned Thyroid 1 03/21/2019 - 03/21/2019 150 1 / 150 Reference Points Delivered Thyroid 1 03/21/2019 - 03/21/2019 150
--- OUTSIDE RECORDS SUMMARY | 2024-09-22 14:19 | XMS_ITS | Continuity of Care Document ---
Author Organization [facility] Address [address] [place] [id number] Phone Care Team Providers Care Senior Medical Director Name Role Phone Wilbert OD, Ermelinda Unavailable Unavailable Allergies, Adverse Reactions, Alerts Substance Reaction Status Criticality Sulfa (Sulfonamide Antibiotics) Active No Information Medications Medication Instructions Dosage Effective Dates (start - stop) Status Comments levothyroxine 100 mcg capsule take 1 capsule by oral route every day 100 MCG - Active Mekinist 2 mg tablet take 1 tablet by or al route every day 2 MG - Active Tafinlar 75 mg capsule take 2 capsule by oral route every 12 hours at least 1 hour before or 2 hours after meals 150 MG - Active Procedures Procedure Date No Charge Refraction Post-op Follow-up Visit After Cataract Laser Surgery Office/outpatient Visit, Est No Charge Refraction No Charge Optomap Fundus Photos 025 No Charge Refraction SCODI, Posterior Segment Eye Exam & Treatment No Charge Refraction Post-op Follow-up Visit Remove Cataract, Post Op Care Synergy Optiblue Remove Cataract, Insert Lens,Comanaged S No Charge Refraction Post-op Follow-up Visit Remove Cataract, Post Op Care 3 Synergy Optiblue Remove Cataract, Insert Lens,Comanaged A Corneal Topography No Charge Refraction No Charge GDX Retina Fundus Photography W/ Report Office/outpatient Visit, Est Remove Foreign Body Eye External, Cornea l With Slit Lamp IOLMaster IOLMaster SCODI, Posterior Segment No Charge Optomap Fundus Photos 023 No Charge Refraction Eye Exam, New Patient Visual Field Examination(s) Office/outpatient Visit, Est Visual Field Examination(s) Corneal Pachymetry SCODI, Posterior Segment Office/outpatient Visit, New Advance Directives Directive Yes / No Effective Date File Name No Information Encounters Encounter Description Practice Location Reason(s) For Visit Diagnoses Date Provider Providers Copied on [facility], [address], [place], [place], [id number], tel:[phone] SEC Butch CORNELL Professional Post-Op (chief complaint) Postop check 5 Wilbert OD Ermelinda. [address], [address], [place], [place], [address], [place]. tel:[phone] Kari Orr MD.Referrandy g Provider: César Bain, [address], [place], [address]. tel:[phone] Office/outpa tient Visit, Est [facility], [address], [place], [place], [address], tel:[phone] SEC Randolph ANETA Professional YAG capsulotomy evaluation (chief complaint) Anterior basement membrane dystrophy of both eyesPresence of intraocular lensVitreous degeneration , bilateralOth er secondary cataract, bilateralOth er secondary cataract, right eye Feb-0 5 Lesa Lindsey. [address] [place], [place] [address], [address], [place], [place], [address], [place]. tel:[phone] Kari Orr MD.Referrandy sanderson Provider: César Bain, [facility] [employer] [address], [place], [address]. tel:[phone] [facility], [address] [place], [place] [address], [place], [place], [address], [place] [phone] SEC Butch CORNELL Professional Complete Exam (chief complaint) Glaucoma suspect low risk, bilateralPre sence of intraocular lensOther secondary cataract, bilateralAnt erior basement membrane dystrophy of both eyesVitreous degeneration , bilateralDry eye syndrome of bilateral lacrimal glands 5 Nirav OD Anabela. [address] [place], [place] [address], [address], [place], [place], [address], [place]. tel:[phone] Kari Orr MD.Referrin g Provider: César Bain, [facility] [employer] [address], [place], [address]. tel:[phone] [facility], [facility] [employer] [address], [place], [place], [address], [place] tel:[phone] SEC Butch CORNELL Professional 2 Week CE/IOL Synergy PO (chief complaint) Postop check Mar- 3 Nirav OD Anabela. [facility] [employer], [address], [place], [place], [address], [place]. tel:[phone] Kari Orr MD.Referrandy g Provider: Claudette Guerra OD, [address] [facility], [place], [address]. tel:[phone] [facility], [facility] [employer] [address], [place], [place], [address], [place] tel:[phone] SEC Butch CORNELL Professional 1 Day CE/IOL+LensA R (chief complaint) Postop check Sep-2 3 Nirav OD Anabela. [address] [place] [address], [address], [place], [place], [address], [place]. tel:[phone] Kari Orr MD.Referrandy g Provider: Claudette Heberchris OD, [address] [place], [address]. tel:[phone] [facility], [address] [place] [address] [address], [place], [place], [address], [place] tel:[phone] [facility] No Information Sep-2 3 Lesa Lindsey. [address] [place] [address] [employer], [address], [place], [place], [address], [place]. tel:[phone] Referring Provider: Claudette Guerra OD, [address] [place], [address]. tel:[phone] [facility], [address] [place] [address] [address], [place], [place], [address], [place] tel:[phone] SEC Butch CORNELL Professional Post-Op (chief complaint) Postop checkCombine d forms of age-related cataract, left eye Sep-1 3 Wilbert OD Ermelinda. [address] [place] [address] [address], [address], [place], [place], [address], [place]. tel:[phone] Kari Orr MD.Referrin g Provider: Claudette Guerra OD, [address] [place], [address]. tel:[phone] [facility], [address] [place] [address] [address], [place], [place], [address], [place] tel:[phone] SEC Butch CORNELL Professional Post-Op (chief complaint) Postop check Sep-0 3 Wilbert OD Ermelinda. [address] [place] [address] [address], [address], [place], [place], [address], [place]. tel:[phone] Kari Orr MD.Referrin g Provider: César Bain, [address] [place] [address], [place], [address]. tel:[phone] [facility], [address] [place] [address] [address], [place], [place], [address], [place] [phone] [facility] No Information 3 Lesa Lindsey. [address] [place] [address] [address] [facility], [address], [place], [place], [address], [place]. tel:[phone] Referring Provider: Claudette Guerra OD, [address] [place], [address]. tel:[phone] Office/outpa tient Visit, Est [facility], [address] [place] [address] [address], [place], [place], [address], [place] tel:[phone] SEC Butch [place] Professional Cataract evaluation (chief complaint) Combined forms of age-related cataract, bilateralSen ile reticular retinal degeneration of both eyesForeign body in cornea, right eye, initial encounter 3 Lesa Lindsey. [address] [place] [address] [address] [facility], [address], [place], [place], [address], [place]. tel:[phone] Kari Orr MD.Referrin g Provider: Claudette Guerra OD, [address] [place], [address]. tel:[phone] [facility], [address] [place] [address] [address], [place], [place], [address], [place] tel:[phone] SEC Butch [place] Professional Complete Exam (chief complaint) Combined forms of age-related cataract, bilateralVit reous degeneration , left eyeGlaucoma suspect of both eyesAnterior basement membrane dystrophy of both eyes 3 Nirav OD Anabela. [address] [place] [address] [address] [facility], [address], [place], [place], [address], [place]. tel:[phone] Kari Orr MD.Referrin g Provider: Claudette Guerra OD, [address] [place], [address]. tel:[phone] [facility], [address] [place] [address] [address], [place], [place], [address], [place] tel:[phone] SEC Butch CORNELL Professional No Information Nov- 3 Дмитрий [place]. [address], [address], [place], [place], [address], [place]. tel:[phone] Specialist: Kari Orr MD, [address] [place] [address] [address], [place], [address]. tel:[phone] Office/outpa tient Visit, [facility], [address] [place] [address] [address], [place], [place], [address], [place] tel:[phone] SEC Butch CORNELL Professional 6 mo IOP ck (chief complaint) Glaucoma suspect of both eyes Oct-2 0 7 Дмитрий [place]. [address], [facility] [place], [address], [place]. tel:[phone] Referring Provider: Claudette Guerra OD, [address] [place], [address]. tel:[phone] Office/outpa tient Visit, [facility], [address] [place] [address] [address], [place], [place], [address], [place] tel:[phone] SEC Butch CORNELL Professional Glaucoma evaluation (chief complaint) Glaucoma suspect of both eyes Sep- 7 Дмитрий [place]. [address], [place], [address], [place]. tel:[phone] Referring Provider: Claudette Guerra OD, [address] [place], [address]. tel:[phone] [facility], [address] [place] [address] [address], [place], [place], [address], [place] tel:[phone] SEC Butch CORNELL Professional No Information Sep-06 20- 7 Guido Odonnell. [address], [place], [address], [place]. tel:[phone] Family History Family Member Type Diagnosis Age At Onset Mother Problem (finding) diabetes mellitus type 2 Paternal grandmother Problem (finding) glaucoma Payers Payer name Insurance type Covered republican ID Authoriza tion(s) No Information Social History Type Description Quantity Date Captured Comments Alcohol Use Details No Caffeine Use Details No Tobacco Use Status Current non-smoker Smoking Status Never smoker Non-Smoking Tobacco Use Details : No Details Available : No Details Available Sex Female Chief Complaint And Reason For Visit From encounter dated '07/31/2024 13:15'. Post-Op (chief complaint). Description: The 69 year old patient presents for a 2 week post op YAG PC OD. Patient states her vision OD is better. Patient states OD is red today and she thinks she has a cold in it. Patient has a floater OD (not new) Reason For Referral Reason For Referral No Information Plan Of Treatment Date Type Action Status Appointment Piedad Clinton BOOKED Patient Education Open-Angle Glaucoma: Ca re Instructions completed Patient Education Cataract Surgery: What to Expect at Home completed Patient Education Cataracts: Care Instruc tions completed History Of Present Illness Encounter Date Complaint History Of Prese nt Illness Post-Op The 69 year old patient presents for a 2 week post op YAG PC OD. Patient states her vision OD is better. Patient states OD is red today and she thinks she has a cold in it. Patient has a floater OD (not new) YAG capsulotomy evaluation The 7 8 year old patient presents for evaluation of YAG capsulotomy evaluation in the right eye. Pt referred by Dr. Gastelum for PCO OD>OS. Pt is struggling to read small print even with glasses on. Pt has trouble seeing street signs at a distance. Pt is having trouble with night driving due to glare from headlights. Complete Exam The 69 year old patient presents for a complete exam ou. Patient is pseudo ou. Patient c/o floater OD (not new). Patient states her vision OD just isn't as good as right after CE. Patient is a glaucoma suspect OU 2 Week CE/IOL Synergy PO The 67 year old patient presents for evaluation of 2 Week CE/IOL Synergy/LensAR PO in the left eye. Pt states vision seems good. Pt has no pain or discomfort. Pt states distance seems a little blurry. Still notices glare and halos but it isn't as bad as it was. Pt is taking all gtts and understands how to take them as instructed. 1 Day CE/IOL+LensAR The 67 year old patient presents for evaluation of 1 Day CE/IOL+LensAR PO in the left eye. Pt states no pain or discomfort. Pt states vision seems better in OS and seems more brighter. Pt has all gtts and understand how to take them as instructed. Post-Op The 67 year old patient presents for a 2 week post op CE OD with Synergy IOL. Patient is using Ketorolac tid OD and Pred bid OD. Patient doesn't think she is seeing as well the OD as the first 2 days. Patient wishes to proceed with CE OS. Patient is bothered by glare at night and has a hard time seeing road signs. Post-Op The 67 year old patient presents for a 1 day post op CE with Synergey IOL OD. Patient to begin Pred and Poly qid OD and Ketorolac tid OD. Patient denies any pain or discomfort. Cataract evaluation The 67 year old patient presents for evaluation of Cataract evaluation in the right eye and left eye. Pt. states past year decrease in vision in OU. Pt. is struggling to see road signs, reading small print, and pt stopped driving at night due to glare from headlights. She is experiencing irritation OD, started this morning, though she had an eyelash in her eye. Complete Exam The 67 year old patient presents for a complete exam ou. Patient is a glaucoma suspect. Patient got glasses less then a year ago and vision is blurry again. Patient states OD is worse then OS. Patient notices color difference seeing between her eyes. 6 mo IOP ck The 61 year old female presents for 6 mo IOP ck in the right eye and left eye. + repeat 24-2 HVF. Hx of Cataracts OU and Glc susp OU. Pt using no gtts at this time. Pt states vision is clear and stable OU at distance and near x 6 mos. Pt will take glasses off to read sometimes because her bifocal is at the very bottom of her frame. Glaucoma evaluation The 61 year old female presents for Glaucoma evaluation OU, patient denies any pain or discomfort at this time, states v/a is stable, just recieved new glasses about 4 weeks ago. Patient does not use any gtts at this time. Functional Status Date Functional Assessmen t No Information Instructions Date Instruction Additional Infor mation Impression/Plan 3-4 weeks with Wilbert or Nirav PO YAG Related to Other secondary cataract, bilateral Impression/Plan Related to Other secondary cataract, bilateral Impression/Plan Impression/Plan Impression/Plan Impression/Plan Impression/Plan Impression/Plan Impression/Plan Follow up - 1 year c omplete with ON OCT Impression/Plan - Gl aucoma suspect:- Based on family history, elevated IOP in outside office and thin pachymetry OU- IOP's are stable- Visual field is stable- No medication needed at this time- Risk of glaucoma is low- Follow up in 1 year for complete exam with ON OCT Impression/Plan - Gl aucoma suspect:- Based on family history, elevated IOP in outside office and thin pachymetry OU discussed with patient.- OCT RNFL and HVF are both wnl today and the IOP is within normal limits in both eyes today.- Recommend observation at this time.- Patient will return in 6 months for IOP check and repeat HVF 24-2. Follow up - Return t o clinic for 6 month IOP check and HVF 24-2 Assessments Type Assessment Date assessment Postop check Patient Care Teams Name Effective Dates (start - stop) Status Members No Information
--- OUTSIDE RECORDS SUMMARY | 2024-09-22 14:19 | XMS_ITS | Encounter Summary ---
Author Organization [facility] Address [address] [place] [address] Care Team Providers Care Area Development Consultant Name Role Phone Herber Metcalf MD Primary Care Provider [phone] Sejal Romero NP Primary Care Provider [phone] Martin Greenberg MD Unavailable Noe Quevedo MD Unavailable [phone] Kari Orr MD Unavailable Bruno Ennis MD Unavailable Kari Orr MD Unavailable Encounter Details Date Type Department Care Team (Late st Contact Info) Description 02/28/[address] [facility] Case Management [address] [place] [address] Leola Mendez RN Social History Tobacco Use Types Packs/Day [...] on file documented as of this encounter Miscellaneous Notes * Plan of Care - Leola Mendez RN - 02/28/2019 9:16 AM CDT OR today for total thyroidectomy. CM will follow post op for any needs. Unable to interview at thistime. Add 03/02/19 documented in this encounter Plan of Treatment Not on file documented as of this encounter Visit Diagnoses Not on filedocumented in this encounter Care Teams Area Development Consultant Relationship Specialty Start Date End Date eHrber Metcalf MD [address] [place] [address] PCP - General Family Medicine 12/07/18 11/30/19 Sejal Romero NP [address] [place] [address] PCP - General Nurse Practitioner 12/01/19 Martin Greenberg MD [address] [place] [address] Medical Oncologist/Watch And Clock Maker And Repairer Medical Oncology 08/19/21 Noe Quevedo MD [address] [place] [address] Referring Physician Surgical Oncology 08/19/21 Kari Orr MD [address] [place] [address] Endocrinology 12/01/19 08/01/23 Bruno Ennis MD [address] [place] [address] Radiation Oncologist Radiation Oncology 03/20/19 4 Kari Orr MD [address] [place] [address] Internal Medicine 04/28/22 09/15/22 documented as of this encounter
--- OUTSIDE RECORDS SUMMARY | 2024-09-22 14:19 | XMS_ITS | Referral Summary ---
Author Organization [facility] Address [address] [place] [phone] Care Team Providers Care Proof Load Mechanic Name Role Phone DanielnavinSejal NP Primary Care Provider [phone] Martin Greenberg MD Unavailable [phone] Noe Quevedo MD Unavailable [phone] Encounters Date Type Department Care Team Description 09/18/2024 1:15 PM CDT Lab [facility] - Lab Collection [address] [place] [id number] Papillary thyroid carcinoma (HCC) 09/18/2024 2:30 PM CDT Office Visit [facility] Oncology [address] [place] [phone] Martin Greenberg MD Papillary thyroid carcinoma (HCC) 09/18/2024 1:30 PM CDT Lab [facility] On[facility] Lab [address] [place] [phone] Papillary thyroid carcinoma (HCC) 06/28/2024 11:45 AM STUDENT DEVELOPMENT SPECIALIST Lab [facility] [place] - Lab Collection [address] [place] [phone] 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); Papillary thyroid carcinoma (CMS/HCC) (HCC) 06/28/2024 12:00 PM STUDENT DEVELOPMENT SPECIALIST Lab [facility] On[facility] Lab [address] [place] [phone] Papillary thyroid carcinoma (CMS/HCC) (HCC); 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) 06/28/2024 12:45 PM STUDENT DEVELOPMENT SPECIALIST Office Visit [facility] Oncology [facility] [address] [place] [address] Martin Greenberg MD Papillary thyroid carcinoma (HCC) (Primary Dx); 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) 06/26/2024 Orders Only [facility] Oncology [facility] [address] [place] [address] Martin Greenberg MD Papillary thyroid carcinoma (HCC) (Primary Dx); 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) from Last 3 Months Allergies Active Allergy Reactions Criticality Noted Date [...] (08/19/2021): Added automatically from request for surgery [id number] Papillary thyroid carcinoma (CMS/HCC) 10/17/2019 Hypothyroidism 10/17/2019 Syncope 02/27/2019 Thyroid cancer 02/01/2019 Cancer Staging:Pathologic: pT3b, pN1b, Age at diagnosis: >= 55 years - Unsigned Overview (02/01/2019): Added automatically from request for surgery [id number] Immunizations Immunization Administration Dates Next Due Influenza, Unspecified 04/03/2021 Tdap 01/16/2010 Social History Tobacco Use Types Packs/Day Years [...] on file Sexual Orientation Not on file Last Filed Vital Signs Vital Sign Reading [...] 04/12/2024 1:25 PM CDT Plan of Treatment Not on file Procedures Procedure Name Priority Date/Time Associated Diagnosis [...] MARKER, IA, S Routine 06/28/2024 11:44 AM STUDENT DEVELOPMENT SPECIALIST EGFR Routine 06/28/2024 11:44 AM STUDENT DEVELOPMENT SPECIALIST 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) Papillary thyroid carcinoma (HCC) DIFFERENTIAL AUTO Routine 06/28/2024 11: 44 AM STUDENT DEVELOPMENT SPECIALIST 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) Papillary thyroid carcinoma (HCC) TSH Routine 06/28/2024 11:44 AM STUDENT DEVELOPMENT SPECIALIST 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) Papillary thyroid carcinoma (CMS/HCC) (HCC) T4, FREE Routine 06/28/2024 11:44 AM STUDENT DEVELOPMENT SPECIALIST 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) Papillary thyroid carcinoma (CMS/HCC) (HCC) THYROGLOBULIN REFLEX TO MS OR IA Routine 06/28/2024 11:44 AM STUDENT DEVELOPMENT SPECIALIST 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) Papillary thyroid carcinoma (CMS/HCC) (HCC) CBC WITH AUTO DIFFERENTIAL Routine 06/28/2024 11:44 AM STUDENT DEVELOPMENT SPECIALIST 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) Papillary thyroid carcinoma (CMS/HCC) (HCC) COMPREHENSIVE METABOLIC PANEL Routine 06/28/2024 11:44 AM STUDENT DEVELOPMENT SPECIALIST 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) Papillary thyroid carcinoma (CMS/HCC) (HCC) from Last 3 Months Results * (ABNORMAL) Differential, auto (09/18/2024 1:09 PM CDT) Neutrophil abs 1.92 1.50 - 6.50 K/cumm Comment:Testing performed by : [facility], [address] [place] [address] Lymphocyte abs 0.71(L) 0.80 - 3.30 K/cumm [facility] Comment:Testing performed by : [facility], [address] [place] [address] Monocyte abs 0.32 0.20 - 0.80 K/cumm [facility] Comment:Testing performed by : [facility], [address] [place] [address] Eosinophil abs 0.05 0.00 - 0.50 K/cumm [facility] Comment:Testing performed by : [facility], [address] [place] [address] Basophil abs 0.02 0.00 - 0.10 K/cumm [facility] Comment:Testing performed by : [facility], [address] [place] [phone] Neutrophil pct 63.5 % [facility] Comment: Interpretive Data Percent cell count reference ranges are not reported, since discordance with absolute values may lead to misinterpretation of CBC data. Current Interpretive Data was last revised on 2017. Testing performed by: [facility], [address] [place] [phone] Lymphocyte pct 23.6 % [facility] Comment: Interpretive Data Percent cell count reference ranges are not reported, since discordance with absolute values may lead to misinterpretation of CBC data. Current Interpretive Data was last revised on 2017. Testing performed by: [facility], [address] [place] [address] Monocyte pct 10.6 % [facility] Comment: Interpretive Data Percent cell count reference ranges are not reported, since discordance with absolute values may lead to misinterpretation of CBC data. Current Interpretive Data was last revised on 2017. Testing performed by: [facility], [address] [place] [phone] Eosinophil pct 1.6 % [facility]ARMER Comment: Interpretive Data Percent cell count reference ranges are not reported, since discordance with absolute values may lead to misinterpretation of CBC data. Current Interpretive Data was last revised on 2017. Testing performed by: [facility], [address] [place], [place] [address] Basophil pct 0.8 % [facility] FARMER Comment: Interpretive Data Percent cell count reference ranges are not reported, since discordance with absolute values may lead to misinterpretation of CBC data. Current Interpretive Data was last revised on 2017. Testing performed by: [facility], [address] [place], [place] [phone] Blood 09/18/2024 1:09 PM CDT 09/18/2024 1:21 PM CDT Jamia Hutchins CERTIFIED NUTRITIONIST LAB BLOOD ORDERABLES Final Result [facility] Department [place] [address] * (ABNORMAL) CBC with auto differential (09/18/2024 1:09 PM CDT) WBC 3.03(L) 3.80 - 9.90 K/cumm Comment:Testing performed by : [facility], [address] [place] [address] Hgb 11.6(L) 11.9 - 15.5 g/dL [facility]ER Comment:Testing performed by : [facility], [address] [place] [address] Hct 35.1(L) 35.6 - 45.5 % [facility]ARMER Comment:Testing performed by : [facility], [address] [place] [address] Plt 218 150 - 400 K/cumm [facility]RIA FARMER Comment:Testing performed by : [facility], [address] [place], [place] [phone] MPV 6.9 6.8 - 10.4 fL [facility]ARMER Comment:Testing performed by : [facility], [address] [place] [address] RBC 4.10 3.90 - 5.20 M/cumm [facility] FARMER Comment:Testing performed by : [facility], [address] [place], [place] [phone] MCV 85.5 81.3 - 96.4 fL [facility]ARM[facility] Comment:Testing performed by : [facility], [address] [place], [place] [phone] MCH 28.2 27.1 - 33.3 pg [facility] FARMER Comment:Testing performed by : [facility], [address] [place] [address] MCHC 32.9 32.3 - 35.7 g/dL [facility] Comment:Testing performed by : [facility], [address] [place] [address] RDW CV 17.2(H) 11.1 - 14.9 % [facility]ARMER Comment:Testing performed by : [facility], [address] [place] [address] NRBC abs 0.00 0.00 - 0.01 K/cumm [facility]ARMER Comment:Testing performed by : [facility], [address] [place] [address] Blood 09/18/2024 1:09 PM CDT 09/18/2024 1:21 PM CDT us Jamia Hutchins CERTIFIED NUTRITIONIST LAB BLOOD ORDERABLES Final Result [facility] Department [place] [address] * Reflex thyroglobulin, tumor marker, IA, S (09/18/2024 12:59 PM CDT) Thyroglobulin, Tumor Marker 0.2 < or = 33 ng/mL [place] [facility] Thyroglobulin interp See Footnote [facility] Comment: Thyroglobulin (Tg) reference intervals are for [...] testing methods are immunoenzymatic assays manufactured by [employer]. and performed on the [employer] DXI 800. Values obtained from different assay methods or kits may be different and cannot be used interchangeably. The results cannot be interpreted as absolute evidence for the presence or absence of malignant disease. Test Performed by: [place] [address] [place] Belt: China Frank Ph.D.; CLIA# [id number] Blood 09/18/2024 12:5 9 PM CDT 09/18/2024 3:42 PM CDT us Jamia Hutchins NP LAB BLOOD ORDERABLES Final Result [facility] Department [place] [address] [place] [facility] * eGFR (09/18/2024 12:59 PM [...] BLOOD ORDERABLES Final Result Performing Organization Address City/[facility]/ZIP Co de Phone Number [facility] [employer] [place] [address] * Thyroglobulin reflex to MS or IA (09/18/2024 12:59 PM CDT) Anti-thyroglobulin <1.8 <1.8 IUnits/mL [place] [facility] Comment: Thyroglobulin Antibody < 1.8 IU/mL. Thyroglobulin performed by Immunoassay to follow. Test Performed by: [address] [place] [address] Black Belt: China Frank Ph.D.; CLIA# [id number] Blood 09/18/2024 12:5 9 PM CDT 09/18/2024 3:42 PM CDT Jamia Hutchins NP LAB BLOOD ORDERABLES Final Result [facility] [employer] [place] [address] [place] [facility] * (ABNORMAL) TSH (09/18/2024 12:59 PM CDT) [facility] Thyroid Stimulating Hormone 0.01(L) 0.30 - 4.20 mcIUnit/mL Blood 09/18/2024 12:5 9 PM CDT 09/18/2024 1:22 PM CDT Jamia Hutchins NP LAB BLOOD ORDERABLES Final Result Performing Organization Address City/[facility]/ZIP Co de Phone Number [facility] [place] [address] * T4, free (09/18/2024 12:59 PM CDT) [facility] Free T4 1.50 0.90 - 1.70 ng/dL Blood 09/18/2024 12:5 9 PM CDT 09/18/2024 1:22 PM CDT Jamia Hutchins NP LAB BLOOD ORDERABLES Final Result Performing Organization Address City/[facility] de Phone Number [facility] Department [place] [address] * (ABNORMAL) Comprehensive metabolic panel (09/18/2024 12:59 PM CDT) [facility] Sodium 141 135 - 145 mmol/L Potassium, pl 3.9 3.3 - 4.9 mmol/L [facility] Chloride 104 97 - 110 mmol/L [facility] CO2 27 22 - 32 mmol/L [facility] Anion gap 10 2 - 15 mmol/L [facility] BUN 17 6 - 25 mg/dL [facility] Creatinine 0.89 0.60 - 1.10 mg/dL [facility] Glucose 97 70 - 199 mg/dL [facility] Comment: Interpretive Data Fasting glucose >/= 126 [...] 2022. Calcium 9.2 8.5 - 10.3 mg/dL [facility] Bilirubin, total 0.3 0.1 - 1.2 mg/dL [facility] Protein, pl 7.1 6.5 - 8.5 g/dL [facility] Albumin 3.5 3.5 - 5.0 g/dL [facility] Alk phos 154(H) 40 - 130 Units/L [facility] ALT 15 7 - 45 Units/L [facility] AST 23 10 - 45 Units/L [facility] Blood 09/18/2024 12:5 9 PM CDT 09/18/2024 1:22 PM CDT us Jamia Hutchins CERTIFIED NUTRITIONIST LAB BLOOD ORDERABLES Final Result [facility] Department [place] [address] * (ABNORMAL) Reflex thyroglobulin, tumor marker, IA, S (06/28/2024 11:44 AM STUDENT DEVELOPMENT SPECIALIST) Thyroglobulin, Tumor Marker 0.1(H) ng/mL [place] [facility] Comment: REFERENCE VALUE Athyrotic <0.1 Intact Thyroid <=33 Thyroglobulin interp See Footnote [facility] FARMER Comment: Thyroglobulin (Tg) levels must be interpreted [...] testing methods are immunoenzymatic assays manufactured by [employer] and performed on the [employer]It DXI 800. Values obtained from different assay methods or kits may be different and cannot be used interchangeably. The results cannot be interpreted as absolute evidence for the presence or absence of malignant disease. Test Performed by: [place] [address] Black Belt: China Frank Ph.D.; CLIA# [id number] Blood 06/28/2024 11:4 4 AM STUDENT DEVELOPMENT SPECIALIST 06/28/2024 1:35 PM STUDENT DEVELOPMENT SPECIALIST Jamia Hutchins CERTIFIED NUTRITIONIST LAB BLOOD ORDERABLES Final Result [facility] Department [place] [address] [place] [facility] * eGFR (06/28/2024 11:44 AM STUDENT DEVELOPMENT SPECIALIST) eGFR 75 >=60 mL/min/1. 73 m2 Comment: [...] reviewed 2021. Blood 06/28/2024 11:4 4 AM STUDENT DEVELOPMENT SPECIALIST 06/28/2024 11:46 AM STUDENT DEVELOPMENT SPECIALIST Jamia Hutchins CERTIFIED NUTRITIONIST LAB BLOOD ORDERABLES Final Result [facility] Department [place] [address] * Differential, auto (06/28/2024 11:44 AM STUDENT DEVELOPMENT SPECIALIST) Neutrophil abs 3.6 1.5 - 6.5 K/cumm Comment:Testing performed by : [facility], [address] [place] [phone] Lymphocyte abs 0.9 0.8 - 3.3 K/cumm [facility] Comment:Testing performed by : [facility], [address] [place] [phone] Monocyte abs 0.4 0.2 - 0.8 K/cumm C[facility]ER [facility] Comment:Testing performed by : [facility], [address] [place] [phone] Eosinophil abs 0.1 0.0 - 0.5 K/cumm C[facility]ER [facility] Comment:Testing performed by : [facility], [address] [place] [phone] Basophil abs 0.0 0.0 - 0.1 K/cumm C[facility]ER [facility]J Comment:Testing performed by : [facility], [address] [place] [phone] Neutrophil pct 72.1 % [facility] Comment: Interpretive Data Percent cell count reference ranges are not reported, since discordance with absolute values may lead to misinterpretation of CBC data. Current Interpretive Data was last revised on 2017. Testing performed by: [facility], [address] [place] [phone] Lymphocyte pct 17.6 % [facility] Comment: Interpretive Data Percent cell count reference ranges are not reported, since discordance with absolute values may lead to misinterpretation of CBC data. Current Interpretive Data was last revised on 2017. Testing performed by: [facility], [address] [place] [phone] Monocyte pct 7.9 % CERS[facility] FARMER Comment: Interpretive Data Percent cell count reference ranges are not reported, since discordance with absolute values may lead to misinterpretation of CBC data. Current Interpretive Data was last revised on 2017. Testing performed by: [facility], [address] [place] [phone] Eosinophil pct 1.9 % CERS[facility] FARMER Comment: Interpretive Data Percent cell count reference ranges are not reported, since discordance with absolute values may lead to misinterpretation of CBC data. Current Interpretive Data was last revised on 2017. Testing performed by: [facility], [address] [place] [phone] Basophil pct 0.5 % [facility]ERS[facility]ARMER Comment: Interpretive Data Percent cell count reference ranges are not reported, since discordance with absolute values may lead to misinterpretation of CBC data. Current Interpretive Data was last revised on 2017. Testing performed by: [facility], [address] [place] [phone] Blood 06/28/2024 11:4 4 AM STUDENT DEVELOPMENT SPECIALIST 06/28/2024 11:45 AM STUDENT DEVELOPMENT SPECIALIST us Jamia Hutchins CERTIFIED NUTRITIONIST LAB BLOOD ORDERABLES Final Result [facility] Department [place] [address] * Thyroglobulin reflex to MS or IA (06/28/2024 11:44 AM STUDENT DEVELOPMENT SPECIALIST) Anti-thyroglobulin <1.8 <1.8 IUnits/mL [place] [facility] Comment: Thyroglobulin Antibody < 1.8 IU/mL. Thyroglobulin performed by Immunoassay to follow. Test Performed by: [facility] [address] [place] [address] Black Belt: China Frank Ph.D.; CLIA# [id number] Blood 06/28/2024 11:4 4 AM STUDENT DEVELOPMENT SPECIALIST 06/28/2024 1:35 PM STUDENT DEVELOPMENT SPECIALIST Jamia Hutchins CERTIFIED NUTRITIONIST LAB BLOOD ORDERABLES Final Result [facility] Department [place] [address] [place] [facility] * (ABNORMAL) CBC with auto differential (06/28/2024 11:44 AM STUDENT DEVELOPMENT SPECIALIST) WBC 4.9 3.8 - 9.9 K/cumm Comment:Testing performed by : [facility], [address] [place] [address] Hgb 10.9(L) 11.9 - 15.5 g/dL [facility] Comment:Testing performed by : [facility], [address] [place] [address] Hct 33.5(L) 35.6 - 45.5 % [facility] Comment:Testing performed by : [facility], [address] [place] [address] Plt 249 150 - 400 K/cumm [facility]ERS[facility]J Comment:Testing performed by : [facility], [address] [place] [address] MPV 6.5(L) 6.8 - 10.4 fL [facility] Comment:Testing performed by : [facility], [address] [place] [address] RBC 3.94 3.90 - 5.20 M/cumm CERSAMIA [facility]J Comment:Testing performed by : [facility], [address] [place] [address] MCV 85.1 81.3 - 96.4 fL [facility] Comment:Testing performed by : [facility], [address] [place], [place] [phone] MCH 27.7 27.1 - 33.3 pg [facility] FARMER Comment:Testing performed by : [facility], [address] [place], [place] [phone] MCHC 32.6 32.3 - 35.7 g/dL [facility]ARMER Comment:Testing performed by : [facility], [address] [place], [place] [phone] RDW CV 15.9(H) 11.1 - 14.9 % [facility] FARMER Comment:Testing performed by : [facility], [address] [place], [place] [phone] NRBC abs 0.00 0.00 - 0.01 K/cumm [facility] FARMER Comment:Testing performed by : [facility], [address] [place], [place] [phone] Blood 06/28/2024 11:4 4 AM STUDENT DEVELOPMENT SPECIALIST 06/28/2024 11:45 AM STUDENT DEVELOPMENT SPECIALIST Jamia Hutchins NP LAB BLOOD ORDERABLES Final Result [facility] Department [place] [address] * (ABNORMAL) TSH (06/28/2024 11:44 AM STUDENT DEVELOPMENT SPECIALIST) Thyroid Stimulating Hormone 0.01(L) 0.30 - 4.20 mcIUnit/mL Blood 06/28/2024 11:4 4 AM STUDENT DEVELOPMENT SPECIALIST 06/28/2024 11:46 AM STUDENT DEVELOPMENT SPECIALIST Jamia Hutchins NP LAB BLOOD ORDERABLES Final Result [facility] [place] [address] * T4, free (06/28/2024 11:44 AM STUDENT DEVELOPMENT SPECIALIST) Free T4 1.56 0.90 - 1.70 ng/dL Blood 06/28/2024 11:4 4 AM STUDENT DEVELOPMENT SPECIALIST 06/28/2024 11:46 AM STUDENT DEVELOPMENT SPECIALIST Jamia Hutchins NP LAB BLOOD ORDERABLES Final Result [facility] Department [place] [address] * (ABNORMAL) Comprehensive metabolic panel (06/28/2024 11:44 AM STUDENT DEVELOPMENT SPECIALIST) Pathologist [facility] Sodium 144 135 - 145 mmol/L Potassium, pl 3.7 3.3 - 4.9 mmol/L [facility] Chloride 107 97 - 110 mmol/L [facility] CO2 32 22 - 32 mmol/L [facility] Anion gap 5 2 - 15 mmol/L [facility] BUN 16 6 - 25 mg/dL [facility] Creatinine 0.85 0.60 - 1.10 mg/dL [facility] Glucose 93 70 - 199 mg/dL [facility] Comment: Interpretive Data Fasting glucose >/= 126 [...] 2022. Calcium 9.6 8.5 - 10.3 mg/dL [facility] Bilirubin, total 0.2 0.1 - 1.2 mg/dL [facility] Protein, pl 7.1 6.5 - 8.5 g/dL [facility] Albumin 3.7 3.5 - 5.0 g/dL [facility] Alk phos 146(H) 40 - 130 Units/L [facility] ALT 14 7 - 45 Units/L [facility] AST 20 10 - 45 Units/L [facility] Blood 06/28/2024 11:4 4 AM STUDENT DEVELOPMENT SPECIALIST 06/28/2024 11:46 AM STUDENT DEVELOPMENT SPECIALIST Jamia Hutchins NP LAB BLOOD ORDERABLES Final Result [facility] [place] [address] from Last 3 Months Insurance MEDICARE [facility] Address: [id number] [place] [address] [employer] Advance Directives For more information, please contact: [phone] * Full Code (Latest Code Status on File) Date Activated Date Inactivated Comments 09/02/2021 6:10 PM 09/03/2021 3:39 PM * Full Code Date Activated Date Inactivated Comments 02/27/2019 4:00 PM 03/01/2019 5:15 PM Care Teams Proof Load Mechanic Relationship Specialty Start Date End Date Sejal Romero NP [address] [place] [address] PCP - General Nurse Practitioner 12/01/19 Martin Greenberg MD [address] [place] [address] Medical Oncologist/Comb Fixer Medical Oncology 08/19/21 Noe Quevedo MD [address] [place] [address] Referring Physician Surgical Oncology 08/19/21
--- OUTSIDE RECORDS SUMMARY | 2024-09-22 14:20 | XMS_ITS | Encounter Summary ---
Author Organization [facility] Address [address] [place] [address] Phone Care Team Providers Care Integrative Medicine Physician Name Role Phone Sejal Romero NP Primary Care Provider [phone] Martin Greenberg MD Unavailable [phone] Noe Quevedo MD Unavailable [phone] Kari Orr MD Unavailable Bruno Ennis MD Unavailable [phone] Encounter Details Date Type Department Care Team (Late st Contact Info) Description 11/19/2022 Social Work [facility] Oncology [address] [facility] 7th [place] [address] [place] [id number] Nina Mcintosh, [facility] Social History Tobacco Use Types Packs/Day Years Used Date Smoking Tobacco: Former Cigarettes 0.3 3 1 975 - 1977 Passive Smoke Exposure: Past Smokeless Tobacco: Never Alcohol Use Standard Drinks/Week [...] on filedocumented in this encounter Care Teams Integrative Medicine Physician Relationship Specialty Start Date End Date Sejal Romero NP [address] [place] [address] PCP - General Nurse Practitioner 12/01/19 Martin Greenberg MD [address] [place] [address] Medical Oncologist/Rehabilitation Clerk Medical Oncology 08/19/21 Noe Quevedo MD [address] [place] [address] Referring Physician Surgical Oncology 08/19/21 Kari Orr MD [address] [place] [address] Endocrinology 12/01/19 08/01/23 Bruno Ennis MD [address] [place] [address] Radiation Oncologist Radiation Oncology 03/20/19 4 documented as of this encounter
== END 2024-09-22 14:17 | disposition home or self-care (01) ==
LOC: CHSLAB 14:17
PROVIDERS: PCP Nurse Practitioner Family; Visit Provider Nurse Practitioner Family
DX: R09.89 Other specified symptoms and signs involving the circulatory and respiratory systems (principal); R30.9 Painful micturition, unspecified
CPT/HCPCS: 71046; 87086; 87186